=== PATIENT | female | born 1960 | race Caucasian/White ===

== ENCOUNTER → 2016-09-07 | Outpatient (REF) | payer OTHER ==
[~2016-09-07] MED LIST: *BLDWK10; *CXR; ALBU17IN INH; ALBUTEROL INH; AMBIENCR PO; AMOXIL875 PO; ASPI1TAB PO; ASPI81TA83 OR; ATEN100T; ATEN100T OR; ATEN100T PO; ATENOLO100 PO; AUG500 PO; CIPR500T89 PO; DARV100T; DARVOCET-N PO; EFFEXOR; EFFEXORXL1 PO; EFFEXORXL7 PO; FIORICET PO; FLAG500T PO; FOLI1TAB2 PO; HCTZ50 PO; HYDR-3713 PO; KEPP500T6 PO; KEPPRA; KLONOPIN05 PO; KLOR10TA OR; LANOXIN PO; LEXAPRO20 PO; LISI10TA4 OR; LYRI75CA; LYRICA75 PO; MOTRIN800 PO; NAPROS500 PO; NAPROSY500 PO; NITR0.4S SL; NITR4TASL SL; PLAV75TA2 OR; PLAV75TA38 PO; POTA20TA PO; PREDNISO10 PO; PROVERA10 PO; RANI15TA PO; REMERON15 PO; SIMV40TA2 OR; TOPAMAX100 PO; TOPAMAX200 PO; TOPI200T; TOPI200T OR; TOPI200T4 PO; TRAZ100T4 PO; TUSSIONEX PO; VENL75TA2 OR; VENL75TA2 PO; VICO5TAB OR; VIMP100T PO; VIMP200T PO; ZOCO40TA PO; ZOLOFT50 PO; ZOMIG2.5 PO
== END ==
LOC: M LAB REF 17:10
PROVIDERS: ATTEND Nurse Practitioner Family
DX: H60.311 Diffuse otitis externa, right ear (principal)

== ENCOUNTER → 2016-11-05 | Outpatient (CLI) | payer OTHER ==
[2016-11-05 13:29] LABS: MEAN CORPUSCULAR HEMOGLOBIN 30.4 pg (27.0-33.0); MEAN CORPUSCULAR HGB CONC 33.9 g/dl (32.0-36.5); MEAN CORPUSCULAR VOLUME 89.6 fl (80.0-96.0); RED CELL DISTRIBUTION WIDTH 13.1 % (11.5-14.5); WHITE BLOOD COUNT 6.2 K/mm3 (4.0-10.0)
[2016-11-05 13:33] LABS: ALBUMIN/GLOBULIN RATIO 1.25 (1.00-1.93); ALKALINE PHOSPHATASE 120 U/L (45-117); ALT/SGPT 22 U/L (12-78); ANION GAP 10 MEQ/L (8-16); AST/SGOT 15 U/L (15-37); BILIRUBIN,TOTAL 0.3 MG/DL (0.2-1.0); BLOOD UREA NITROGEN 9 MG/DL (7-18); CALCIUM LEVEL 9.2 MG/DL (8.5-10.1); CARBON DIOXIDE LEVEL 25 MEQ/L (21-32); CHLORIDE LEVEL 110 MEQ/L (98-107); CREATININE FOR GFR 0.74 MG/DL (0.55-1.02); GLOMERULAR FILTRATION RATE > 60.0 (>51); GLUCOSE, FASTING 101 MG/DL (70-105); SODIUM LEVEL 145 MEQ/L (136-145); TOTAL PROTEIN 7.2 GM/DL (6.4-8.2)
== END ==
LOC: M LAB 12:39
PROVIDERS: ATTEND Internal Medicine Hematology & Oncology
DX: C71.1 Malignant neoplasm of frontal lobe (principal)

== ENCOUNTER → 2017-03-06 | Outpatient (CLI) | payer OTHER, MEDICAID ==
[~2017-03-06] MED LIST changes: +CIPR-249 PO; -CIPR500T89 PO; -FOLI1TAB2 PO; +FOLI1TAB4 PO; +KEPP1TAB PO; -KEPP500T6 PO; +PLAV1TAB2 PO; -PLAV75TA38 PO; -TOPI200T4 PO; +TOPI200T7 PO; +TRAZ-136 PO; -TRAZ100T4 PO
[2017-03-06 15:12] LABS: MEAN CORPUSCULAR HEMOGLOBIN 30.9 pg (27.0-33.0); MEAN CORPUSCULAR VOLUME 90.9 fl (80.0-96.0); RED CELL DISTRIBUTION WIDTH 12.7 % (11.5-14.5); WHITE BLOOD COUNT 6.2 K/mm3 (4.0-10.0)
[2017-03-06 15:22] LABS: ALBUMIN 4.3 GM/DL (3.2-5.2); ALBUMIN/GLOBULIN RATIO 1.34 (1.00-1.93); ALKALINE PHOSPHATASE 118 U/L (45-117); ALT/SGPT 26 U/L (12-78); ANION GAP 7 MEQ/L (8-16); AST/SGOT 17 U/L (15-37); BILIRUBIN,TOTAL 0.3 MG/DL (0.2-1.0); BLOOD UREA NITROGEN 16 MG/DL (7-18); CALCIUM LEVEL 9.2 MG/DL (8.5-10.1); CARBON DIOXIDE LEVEL 22 MEQ/L (21-32); CHLORIDE LEVEL 112 MEQ/L (98-107); CREATININE FOR GFR 0.95 MG/DL (0.55-1.02); GLOMERULAR FILTRATION RATE > 60.0 (>51); GLUCOSE, FASTING 85 MG/DL (70-105); POTASSIUM SERUM 4.2 MEQ/L (3.5-5.1); SODIUM LEVEL 141 MEQ/L (136-145); TOTAL PROTEIN 7.5 GM/DL (6.4-8.2)
== END ==
LOC: M LAB 14:14
PROVIDERS: ATTEND Internal Medicine Hematology & Oncology
DX: C71.1 Malignant neoplasm of frontal lobe (principal); I10 Essential (primary) hypertension; M19.90 Unspecified osteoarthritis, unspecified site; I25.2 Old myocardial infarction

== ENCOUNTER → 2017-05-09 | Outpatient (CLI) | payer OTHER, MEDICAID ==
--- NOTE | 2017-05-09 13:12 | REP ---
Clinical: Hip pain. Technique: Neutral and frog lateral views of the right hip. Findings: Age-related changes include increased sclerosis to the acetabular roof with subtle early spurring. No acute fracture dislocation. Surrounding soft tissues are normal. Impression: Mild age-related degenerative changes. Signed by Jose Ross MD 05/09/2017 01:03 P
== END ==
LOC: M RAD 12:41
PROVIDERS: ATTEND Psychiatry & Neurology Neurology
DX: M25.551 Pain in right hip (principal); M16.11 Unilateral primary osteoarthritis, right hip

== ENCOUNTER → 2017-06-12 | Outpatient (CLI) | payer OTHER, MEDICAID ==
[2017-06-12 13:43] LABS: BLOOD UREA NITROGEN 17 MG/DL (7-18); CREATININE FOR GFR 0.87 MG/DL (0.55-1.02); GLOMERULAR FILTRATION RATE > 60.0 (>51)
== END ==
LOC: M LAB 12:41
PROVIDERS: ATTEND Psychiatry & Neurology Neurology
DX: I10 Essential (primary) hypertension (principal)

== ENCOUNTER → 2017-10-14 | Outpatient (CLI) | payer OTHER, MEDICAID | LOC: M RAD 14:17 | DX: J44.9 Chronic obstructive pulmonary disease, unspecified (principal) | CPT/HCPCS: 71046 ==

== ENCOUNTER → 2017-10-17 | Outpatient (CLI) | payer OTHER, MEDICAID | LOC: M RAD 14:41 | DX: Z12.31 Encounter for screening mammogram for malignant neoplasm of breast (principal); Z78.0 Asymptomatic menopausal state | CPT/HCPCS: 77067 ==

== ENCOUNTER → 2018-02-03 | Outpatient (CLI) | payer OTHER, MEDICAID ==
[2018-02-03 13:35] LABS: BASO % 0.4 % (0.0-1.0); EOS # 0.1 10^3/uL (0.0-0.50); EOS % 0.9 % (0.0-3.0); HEMATOCRIT 44.1 % (36.0-47.0); HEMOGLOBIN 14.8 g/dl (12.0-15.5); IMMATURE GRANULOCYTE % 0.4 % (0-3.0); MEAN CORPUSCULAR HEMOGLOBIN 29.8 pg (27.0-33.0); MEAN CORPUSCULAR HGB CONC 33.6 g/dl (32.0-36.5); MEAN CORPUSCULAR VOLUME 88.9 fl (80.0-96.0); MONO # 0.6 10^3/uL (0.0-0.8); MONO % 8.1 % (0.0-5.0); NEUTROPHILS # 4.4 10^3/uL (1.8-7.7); NEUTROPHILS % 62.2 % (36.0-66.0); PLATELET COUNT, AUTOMATED 263 10^3/uL (150-450); RED BLOOD COUNT 4.96 10^6/uL (4.00-5.40); RED CELL DISTRIBUTION WIDTH 12.8 % (11.5-14.5)
[2018-02-03 13:59] LABS: ALBUMIN 3.9 GM/DL (3.2-5.2); ALBUMIN/GLOBULIN RATIO 1.05 (1.00-1.93); ALKALINE PHOSPHATASE 119 U/L (45-117); ALT/SGPT 29 U/L (12-78); ANION GAP 5 MEQ/L (8-16); AST/SGOT 21 U/L (7-37); BILIRUBIN,TOTAL 0.3 MG/DL (0.2-1.0); BLOOD UREA NITROGEN 14 MG/DL (7-18); CALCIUM LEVEL 9.7 MG/DL (8.5-10.1); CARBON DIOXIDE LEVEL 28 MEQ/L (21-32); CHLORIDE LEVEL 111 MEQ/L (98-107); CREATININE FOR GFR 0.76 MG/DL (0.55-1.30); GLOMERULAR FILTRATION RATE > 60.0 (>51); GLUCOSE, FASTING 84 MG/DL (70-100); POTASSIUM SERUM 4.6 MEQ/L (3.5-5.1); SODIUM LEVEL 144 MEQ/L (136-145); TOTAL PROTEIN 7.6 GM/DL (6.4-8.2)
== END ==
LOC: M LAB 12:43
DX: C71.1 Malignant neoplasm of frontal lobe (principal)
CPT/HCPCS: 80053

== ENCOUNTER 2018-02-27 05:54 | Day surgery (SDC) | payer OTHER, MEDICAID ==
[2018-02-27] MEDS: PROPARACAINE 0.5% OPHTH SOL 15ML OS (06:50)
[2018-02-27] MEDS: TROPICAMIDE 1% OPHTH SOLN 2ML OS (06:50)
[2018-02-27] MEDS: OFLOXACIN 0.3 % (OCUFLOX) OPTH SOL 5ML OS (06:50)
[2018-02-27] MEDS: PHENYLEPHRINE 2.5% OPHTH SOL 2ML OS (06:59)
[2018-02-27] MEDS ORDERED: MIDAZOLAM INJ 2 MG/2 ML VIAL (J2250) As Ordered (07:17)
[2018-02-27] MEDS: POVIDONE-IODINE 5% OPHTH PREP SOL 30ML As Ordered (07:56)
[2018-02-27] MEDS ORDERED: fentaNYL 100 MCG/2 ML INJECTION (J3010) As Ordered (07:57)
[2018-02-27] MEDS: TETRACAINE 0.5% OPHTH SOLN 4ML As Ordered (07:57)
[2018-02-27] MEDS: DUOVISC (0.50ML VISCOAT/0.55ML PROVISC) OPHTH KIT As Ordered (08:03)
[2018-02-27] MEDS: BALANCED SALT IRRIGATION SOLUTION 500ML BAG (FOR OR EYE MACHINE) As Ordered (08:03)
[2018-02-27] MEDS: CEFUROXIME 1MG/0.1ML INTRACAMERAL INJ As Ordered (08:03)
[2018-02-27] MEDS: LIDOCAINE 0.75%/EPINEPHRINE 0.025% IN BSS 1ML SYR INTRACAMERAL (OR ONLY) As Ordered (08:03)
[2018-02-27] MEDS ORDERED: BALANCED SALT IRRIGATION SOLUTION 500ML BAG (FOR OR EYE MACHINE) As Ordered (10:16)
== END 2018-02-27 08:55 | disposition home or self-care (01) ==
LOC: M SDC 05:54
DX: H25.12 Age-related nuclear cataract, left eye (principal); I10 Essential (primary) hypertension; J45.909 Unspecified asthma, uncomplicated; E78.5 Hyperlipidemia, unspecified; I25.10 Atherosclerotic heart disease of native coronary artery without angina pectoris; I25.2 Old myocardial infarction; K52.9 Noninfective gastroenteritis and colitis, unspecified; K21.9 Gastro-esophageal reflux disease without esophagitis; R29.898 Other symptoms and signs involving the musculoskeletal system; M12.9 Arthropathy, unspecified; F32.9 Major depressive disorder, single episode, unspecified; R51 Headache; R56.9 Unspecified convulsions; R06.02 Shortness of breath; Z88.8 Allergy status to other drugs, medicaments and biological substances; Z79.899 Other long term (current) drug therapy; Z79.82 Long term (current) use of aspirin; Z72.0 Tobacco use; Z95.5 Presence of coronary angioplasty implant and graft; Z92.21 Personal history of antineoplastic chemotherapy; Z92.3 Personal history of irradiation; Z78.0 Asymptomatic menopausal state; Z86.011 Personal history of benign neoplasm of the brain
CPT/HCPCS: 66984

== ENCOUNTER 2019-01-13 22:04 | Emergency (ER) | payer MEDICARE, MEDICAID ==
[~2019-01-13] VITALS: Ht 157.5 cm; Wt 53.7 kg
[~2019-01-13 22:04] MED LIST changes: -ASPI1TAB PO; +ASPI81TA26 PO; +FOLI1TAB11 PO; -FOLI1TAB4 PO; +KLOR20TA42 PO; -POTA20TA PO; -TRAZ-136 PO; +TRAZ-163 PO
[2019-01-13] MEDS ORDERED: TOPI200T7 (22:38)
--- NOTE | 2019-01-14 01:35 | REPVR ---
EXAM: CT Head Without Contrast EXAM DATE/TIME: 01/13/2019 10:42 PM CLINICAL HISTORY: 58 years old, female; Injury or trauma; Fall; Prior surgery; Surgery date: 6+ months; Surgery type: Crani for tumors patient states TECHNIQUE: Imaging protocol: Axial computed tomography images of the head without contrast. Radiation optimization: All CT scans at this facility use at least one of these dose optimization techniques: automated exposure control; mA and/or kV adjustment per patient size (includes targeted exams where dose is matched to clinical indication); or iterative reconstruction. COMPARISON: CT Head without contrast 12/10/2015 2:07 PM FINDINGS: The patient is status post a left frontotemporal craniotomy, approximately 7.2 cm in diameter, similar to the prior exam, with bone flap appearing in good position, secured by metallic plate and screw fixation. There is no acute intracranial hemorrhage, extra axial hematoma, or midline shift. There is parenchymal volume loss, likely related to age related involutional change. The ventricles are not dilated. There is mild intracranial atherosclerosis. Deep to the craniotomy site, there is cortical and subcortical hypoattenuation within the left frontal lobe, similar to the prior exam, possibly encephalomalacia, related to postsurgical change and/or related to chronic vascular ischemic change. Encephalomalacia also noted within the posterior right occipital lobe, similar to the prior exam possibly related to old infarct. Microvascular ischemic changes are also suspected bilaterally. No CT findings are seen at the current time to suggest changes of acute territorial vascular infarction. Note is made however, that CT changes, may lag clinical findings in acute CVA. If clinically indicated, consideration could be given to MRI with diffusion weighted imaging, due to its greater sensitivity, for detection of acute ischemic change. Intracranial calcifications are incidentally noted. No pericranial scalp hematoma is seen. Ocular postoperative changes are noted. No acute cranial vault fracture is seen. No fluid is seen within the visualized paranasal sinuses or mastoid air cells. IMPRESSION: No evidence of acute territorial major vessel infarct, mass effect, or hemorrhage. Postoperative changes are again noted. Intracranial atherosclerosis and microvascular ischemic changes again noted. Left frontal and right occipital lobe encephalomalacia are similar to the prior exam. For evaluation of mass, consider imaging with contrast, preferably MRI. Findings discussed above in detail. Electronically signed by: Ronaldo Scott On 01/14/2019 01:34:26 AM
--- NOTE | 2019-01-14 01:38 | REPVR ---
EXAM: CT Cervical Spine Without Contrast EXAM DATE/TIME: 01/13/2019 10:42 PM CLINICAL HISTORY: 58 years old, female; Injury or trauma; Fall; Initial encounter; Concussion /head injury TECHNIQUE: Imaging protocol: Axial computed tomography images of the cervical spine without contrast. Coronal and sagittal reformatted images were created and reviewed. Radiation optimization: All CT scans at this facility use at least one of these dose optimization techniques: automated exposure control; mA and/or kV adjustment per patient size (includes targeted exams where dose is matched to clinical indication); or iterative reconstruction. COMPARISON: No relevant prior studies available. FINDINGS: Cervical vertebral body heights, posterior cervical alignment, and prevertebral soft tissues are within normal limits. The facet joints are not subluxed or dislocated. No acute fracture of the cervical spine is seen. Mild degenerative changes are noted. IMPRESSION: No acute fracture or malalignment of the cervical spine. Other findings discussed above. Electronically signed by: Ronaldo Scott On 01/14/2019 01:38:21 AM
[2019-01-14 05:43] VITALS: BP 134/76
--- NOTE | 2019-01-14 06:18 | ECGEPIP ---
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
--- NOTE | 2019-01-15 14:03 | ED PDOC ---
Post-Departure Follow-Up dr piedra faxed formal report of ct head for fu Sammi Madison MD January 15, 2019 14:03
== END 2019-01-14 05:44 | disposition home or self-care (01) ==
LOC: M ED 22:04
DX: R26.89 Other abnormalities of gait and mobility (principal); W19.XXXA Unspecified fall, initial encounter; Y92.099 Unspecified place in other non-institutional residence as the place of occurrence of the external cause; Y93.01 Activity, walking, marching and hiking; Y99.9 Unspecified external cause status; R00.1 Bradycardia, unspecified; I25.10 Atherosclerotic heart disease of native coronary artery without angina pectoris; I25.2 Old myocardial infarction; I10 Essential (primary) hypertension; Z79.82 Long term (current) use of aspirin; Z79.899 Other long term (current) drug therapy; Z88.8 Allergy status to other drugs, medicaments and biological substances

== ENCOUNTER → 2019-04-09 | Outpatient (CLI) | payer MEDICARE, MEDICAID ==
[~2019-04-09] MED LIST changes: +TOPI200T7
[2019-04-09 14:13] LABS: BLOOD UREA NITROGEN 9 MG/DL (7-18); CREATININE FOR GFR 0.73 MG/DL (0.55-1.30); GLOMERULAR FILTRATION RATE > 60.0 (>51)
== END ==
LOC: M LAB 12:57
PROVIDERS: ATTEND Internal Medicine Hematology & Oncology
DX: C71.1 Malignant neoplasm of frontal lobe (principal)

== ENCOUNTER 2019-04-25 15:08 | Emergency (ER) | payer MEDICARE, MEDICAID ==
[~2019-04-25] VITALS: Ht 157.5 cm; Wt 64.2 kg
--- NOTE | 2019-04-25 15:37 | REP ---
Clinical: Trauma. Technique: Axial noncontrast images from the skull base to the vertex. Comparison: 01/13/2019. Findings: Evidence of prior left-sided craniotomy with underlying encephalomalacia and low density changes. Mild atrophy and periventricular leukomalacia is also appreciated along with focus of encephalomalacia in the right occipital region. There is no evidence for acute intracranial hemorrhage or mass/mass effect. No midline shift. No extra-axial fluid collection. Sinuses and mastoid air cells are clear. Impression: Chronic stable changes. No evidence for acute intracranial hemorrhage or trauma/injury. Electronically Signed by Jose Ross MD 04/25/2019 03:27 P
--- NOTE | 2019-04-25 15:38 | REP ---
Clinical: Trauma. Comparison: 01/13/2019 . Technique: Axial noncontrast images from the skull base to the thoracic inlet with coronal and sagittal re-formations Findings: Normal alignment and lordosis is maintained. Cervical vertebral bodies including transverse processes and spinous processes are intact and there is no evidence for acute fracture / compression injury or subluxation. Spinal canal is patent. Posterior elements are intact. Paravertebral soft tissues are normal. Impression: Normal age-appropriate noncontrast cervical spine CT. No evidence for acute pathology or trauma/injury. Electronically Signed by Jose Ross MD 04/25/2019 03:28 P
--- NOTE | 2019-04-25 16:15 | REP ---
Clinical: Trauma. Fall. Technique: AP view of the pelvis with neutral and frog lateral views of the right and left hip. Findings: Skeletal structures and joint spaces are intact and demonstrate age-related changes without evidence for acute fracture or dislocation. Surrounding soft tissues are unremarkable. Impression: No evidence for pelvic or bilateral hip fracture/injury. The Electronically Signed by Jose Ross MD 04/25/2019 04:07 P
[2019-04-25 16:35] VITALS: BP 167/81
== END 2019-04-25 16:43 | disposition home or self-care (01) ==
LOC: M ED 15:08
DX: S00.03XA Contusion of scalp, initial encounter (principal); S70.00XA Contusion of unspecified hip, initial encounter; W18.39XA Other fall on same level, initial encounter; Y92.018 Other place in single-family (private) house as the place of occurrence of the external cause; I10 Essential (primary) hypertension; R56.9 Unspecified convulsions; Z79.899 Other long term (current) drug therapy; Z79.82 Long term (current) use of aspirin; Z88.8 Allergy status to other drugs, medicaments and biological substances

== ENCOUNTER 2019-05-04 11:41 | Emergency (ER) | payer MEDICARE, MEDICAID ==
[~2019-05-04] VITALS: Ht 157.5 cm; Wt 58.1 kg
[~2019-05-04 11:41] MED LIST changes: -TRAZ-163 PO; +TRAZ-257 PO
--- NOTE | 2019-05-04 12:35 | REP ---
CT of the head without contrast Indication: Recurrent false, history glioma with resection. Comparison: Head CT of 04/25/2019. Technique: Axial CT of the head was performed without contrast. Findings: There is evidence of prior left-sided craniotomy with underlying sign of density within the left frontal white matter and volume loss. There is a similar appearance of right occipital encephalomalacia as well as hypodensity within the right cerebral hemisphere which is nonspecific. There is no evidence of acute intracranial hemorrhage or extra-axial fluid collection. There is no mass effect or midline shift. The basal cisterns are patent. There is no hydrocephalus. The visualized paranasal sinuses and mastoid air cells are clear. Impression: No acute intracranial hemorrhage, mass effect or hydrocephalous. Similar appearance of prior left craniotomy with underlying left frontal white matter changes and encephalomalacia. Similar right occipital encephalomalacia. Electronically Signed by Junaid Knapp MD 05/04/2019 12:27 P
[2019-05-04 12:46] LABS: HEMATOCRIT 43.5 % (36.0-47.0); HEMOGLOBIN 14.6 g/dl (12.0-15.5); MEAN CORPUSCULAR HEMOGLOBIN 29.3 pg (27.0-33.0); MEAN CORPUSCULAR HGB CONC 33.6 g/dl (32.0-36.5); MEAN CORPUSCULAR VOLUME 87.2 fl (80.0-96.0); PLATELET COUNT, AUTOMATED 217 10^3/uL (150-450); RED BLOOD COUNT 4.99 10^6/uL (4.00-5.40); WHITE BLOOD COUNT 5.9 10^3/uL (4.0-10.0)
[2019-05-04 13:04] LABS: BLOOD UREA NITROGEN 7 MG/DL (7-18); CARBON DIOXIDE LEVEL 23 MEQ/L (21-32); CHLORIDE LEVEL 112 MEQ/L (98-107); CREATININE FOR GFR 0.68 MG/DL (0.55-1.30); GLOMERULAR FILTRATION RATE > 60.0 (>51); GLUCOSE, FASTING 102 MG/DL (70-100); POTASSIUM SERUM 3.2 MEQ/L (3.5-5.1); SODIUM LEVEL 141 MEQ/L (136-145)
[2019-05-04] MEDS ORDERED: POTASSIUM CHLORIDE 10 MEQ SR TABLET PO ONE (13:30)
[2019-05-04 14:00] VITALS: BP 193/90
[2019-09-07] MEDS ORDERED: OXYC-517 PO (23:00)
[2019-09-07] MEDS ORDERED: KLOR10TA76 PO (23:00)
[2019-09-07] MEDS ORDERED: DEXA2TA PO (23:00)
== END 2019-05-04 14:13 | disposition home or self-care (01) ==
LOC: EDBD 11:41 → M ED 11:41
DX: Z85.841 Personal history of malignant neoplasm of brain (principal); R26.9 Unspecified abnormalities of gait and mobility; I25.10 Atherosclerotic heart disease of native coronary artery without angina pectoris; I25.2 Old myocardial infarction; Z95.5 Presence of coronary angioplasty implant and graft; Z88.8 Allergy status to other drugs, medicaments and biological substances; Z79.82 Long term (current) use of aspirin; Z79.899 Other long term (current) drug therapy

== ENCOUNTER 2019-06-11 14:45 | Emergency (ER) | payer MEDICARE, MEDICAID ==
[~2019-06-11 14:45] MED LIST changes: +TRAZ-163 PO; -TRAZ-257 PO
--- NOTE | 2019-06-11 15:40 | REP ---
CT brain: 06/11/2019. Indication: Head trauma. Comparison: 05/04/2019. Technique: Unenhanced axial CT images of the brain were obtained from skull base to vertex. Findings: The patient is status post left frontoparietal craniotomy with underlying encephalomalacia and gliosis within the left frontal lobe. Encephalomalacia is additionally noted within the medial right prior occipital region. There is no acute intracranial hemorrhage or evidence of acute cortical infarction. There is no mass effect or hydrocephalous. There is ex vacuo dilatation of the left lateral ventricle. Volume loss is present. There are scattered/patchy areas of white matter hypoattenuation the visualized paranasal sinuses and mastoid air cells are clear. Impression: No acute post traumatic intracranial process. Left frontal lobe encephalomalacia. Left frontoparietal craniotomy. Right prior occipital encephalomalacia most consistent with the previous right SENIOR GAME DESIGNER infarction. Volume loss and chronic white matter disease likely representing sequelae of chronic microangiopathic ischemic disease. Electronically Signed by Jason Murray DO 06/11/2019 03:31 P
--- NOTE | 2019-06-11 15:46 | REP ---
CT cervical spine: 06/11/2019. Indication: Cervical spine trauma. Comparison: 04/25/2019. Technique: Axial images of the cervical spine were obtained with sagittal and coronal reconstructions provided. Findings: There is slight straightening of the cervical lordosis. There is no acute fracture, subluxation or dislocation. The prevertebral soft tissues are unremarkable. There is a punctate hyperdense focus within the left occipital condyle which is most consistent with a tiny bone island. There is no hemorrhage or additional post traumatic sequelae detected within the spinal canal. Impression: No acute post traumatic osseous injuries of the cervical spine. Electronically Signed by Jason Murray DO 06/11/2019 03:37 P
[2019-06-11 16:16] LABS: BASO % 0.5 % (0.0-1.0); EOS % 0.6 % (0.0-3.0); HEMATOCRIT 45.2 % (36.0-47.0); HEMOGLOBIN 15.1 g/dl (12.0-15.5); LYMPH # 1.9 10^3/uL (1.5-5.0); LYMPH % 30.3 % (24.0-44.0); MEAN CORPUSCULAR HEMOGLOBIN 29.7 pg (27.0-33.0); MEAN CORPUSCULAR HGB CONC 33.4 g/dl (32.0-36.5); MEAN CORPUSCULAR VOLUME 88.8 fl (80.0-96.0); MONO # 0.6 10^3/uL (0.0-0.8); MONO % 8.8 % (0.0-5.0); NEUTROPHILS # 3.8 10^3/uL (1.5-8.5); NEUTROPHILS % 59.5 % (36.0-66.0); PLATELET COUNT, AUTOMATED 251 10^3/uL (150-450); RED BLOOD COUNT 5.09 10^6/uL (4.00-5.40); WHITE BLOOD COUNT 6.4 10^3/uL (4.0-10.0)
[2019-06-11 16:40] LABS: INR 1.17; PROTHROMBIN TIME 14.6 SECONDS (11.8-14.0)
[2019-06-11 17:00] LABS: BLOOD UREA NITROGEN 7 MG/DL (7-18); CARBON DIOXIDE LEVEL 14 MEQ/L (21-32); CHLORIDE LEVEL 133 MEQ/L (98-107); CREATININE FOR GFR 0.25 MG/DL (0.55-1.30); GLOMERULAR FILTRATION RATE > 60.0 (>51); GLUCOSE, FASTING 55 MG/DL (70-100); POTASSIUM SERUM 2.1 MEQ/L (3.5-5.1); SODIUM LEVEL 152 MEQ/L (136-145)
[2019-06-11 17:01] LABS: CALCIUM LEVEL < 5.0 MG/DL (8.5-10.1)
[2019-06-11] MEDS ORDERED: NS 1,000 ML IV SCH (17:19)
[2019-06-11] MEDS ORDERED: KCL 10MEQ/100ML SWI (KRUN) 10 MEQ in IV 1 EA IV ONE (17:30)
[2019-06-11] MEDS ORDERED: POTASSIUM CHLORIDE 10 MEQ SR TABLET PO ONE (17:30)
[2019-06-11 17:50] LABS: ACETAMINOPHEN LEVEL 9.9 UG/ML (10.0-30.0); ALBUMIN 1.8 GM/DL (3.2-5.2); ALT/SGPT 9 U/L (12-78); BILIRUBIN,DIRECT < 0.1 MG/DL (0.0-0.2); BILIRUBIN,TOTAL 0.3 MG/DL (0.2-1.0); CK-MB VALUE MASS < 1.0 NG/ML (<3.6); CPK CREATINE PHOSPHOKINASE 34 U/L (26-192); MB/CK RELATIVE INDEX 2.94 (< OR =4); SALICYLATE LEVEL < 1.7 MG/DL (5.0-30.0); THYROID STIMULATING HORMONE 0.527 uIU/ML (0.358-3.740); TOTAL PROTEIN 3.3 GM/DL (6.4-8.2); TROPONIN I 0.03 NG/ML (< 0.10)
[2019-06-11 18:29] LABS: BLOOD UREA NITROGEN 11 MG/DL (7-18); CALCIUM LEVEL 9.3 MG/DL (8.5-10.1); CARBON DIOXIDE LEVEL 24 MEQ/L (21-32); CHLORIDE LEVEL 114 MEQ/L (98-107); CREATININE FOR GFR 0.76 MG/DL (0.55-1.30); GLOMERULAR FILTRATION RATE > 60.0 (>51); GLUCOSE, FASTING 85 MG/DL (70-100); POTASSIUM SERUM 3.9 MEQ/L (3.5-5.1); SODIUM LEVEL 142 MEQ/L (136-145)
[2019-06-11 18:40] LABS: ACETAMINOPHEN LEVEL < 2.0 UG/ML (10.0-30.0); ALBUMIN 3.6 GM/DL (3.2-5.2); ALT/SGPT 17 U/L (12-78); BILIRUBIN,DIRECT 0.1 MG/DL (0.0-0.2); BILIRUBIN,TOTAL 0.5 MG/DL (0.2-1.0); CK-MB VALUE MASS < 1.0 NG/ML (<3.6); CPK CREATINE PHOSPHOKINASE 64 U/L (26-192); MB/CK RELATIVE INDEX 1.56 (< OR =4); SALICYLATE LEVEL 2.7 MG/DL (5.0-30.0); TOTAL PROTEIN 6.6 GM/DL (6.4-8.2); TROPONIN I < 0.02 NG/ML (< 0.10)
[2019-06-11 19:19] VITALS: BP 116/73
--- NOTE | 2019-06-12 19:39 | ECGEPIP ---
[facility] - ED Test Date: 2019-06-11 Pat Name: STACIE CRUZ Department: Room: - Gender: Female Ui Architect: YULIANA : 1960 Requested By: JD CR Order Number: [id number] Reading MD: Sammi Lantigua Measurements Intervals [place] Rate: 59 P: 63 GA: 182 QRS: 34 QRSD: 98 T: 47 QT: 418 QTc: 416 Interpretive Statements SINUS BRADYCARDIA NONSPECIFIC ST T WAVE CHANGES DELAYED R WAVE PROGRESSION CW 01/13/[address] T WAVE CHANGES Electronically Signed on 06-12-2019 19:39:23 EDT by Sammi Lantigua
== END 2019-06-11 19:25 | disposition home or self-care (01) ==
LOC: M ED 14:45
DX: S09.90XA Unspecified injury of head, initial encounter (principal); W18.39XA Other fall on same level, initial encounter; Y92.410 Unspecified street and highway as the place of occurrence of the external cause; I25.10 Atherosclerotic heart disease of native coronary artery without angina pectoris; Z95.5 Presence of coronary angioplasty implant and graft; Z79.899 Other long term (current) drug therapy; Z79.82 Long term (current) use of aspirin; Z79.02 Long term (current) use of antithrombotics/antiplatelets; Z88.8 Allergy status to other drugs, medicaments and biological substances; F17.210 Nicotine dependence, cigarettes, uncomplicated

== ENCOUNTER → 2019-10-19 | Outpatient (CLI) | payer MEDICARE, MEDICAID ==
[~2019-10-19] MED LIST changes: +DEXA2TA PO; +KLOR10TA76 PO; +OXYC-517 PO; -TRAZ-163 PO; +TRAZ-257 PO
[2019-10-19 14:20] LABS: ALBUMIN 3.7 GM/DL (3.2-5.2); ALT/SGPT 14 U/L (12-78); BILIRUBIN,TOTAL 0.3 MG/DL (0.2-1.0); BLOOD UREA NITROGEN 10 MG/DL (7-18); CALCIUM LEVEL 8.9 MG/DL (8.5-10.1); CARBON DIOXIDE LEVEL 22 MEQ/L (21-32); CHLORIDE LEVEL 114 MEQ/L (98-107); CREATININE FOR GFR 0.78 MG/DL (0.55-1.30); GLOMERULAR FILTRATION RATE > 60.0 (>51); GLUCOSE, FASTING 106 MG/DL (70-100); POTASSIUM SERUM 3.8 MEQ/L (3.5-5.1); SODIUM LEVEL 142 MEQ/L (136-145)
== END ==
LOC: M LAB 13:31
PROVIDERS: ATTEND Internal Medicine Hematology & Oncology
DX: C71.1 Malignant neoplasm of frontal lobe (principal)

== ENCOUNTER → 2019-11-12 | Outpatient (CLI) | payer MEDICARE, MEDICAID ==
[~2019-11-12] MED LIST changes: +PROHANCE 279.3MG/ML 5ML VIAL (A9576) As Ordered ONE
--- NOTE | 2019-11-12 13:40 | REPVR ---
PROCEDURE INFORMATION: Exam: MR Head Without and With Contrast Exam date and time: 11/12/2019 11:47 AM Age: 58 years old Clinical indication: Condition or disease; Brain tumor; Neoplasm of brain, not specified; Prior surgery; Surgery date: 6+ months; Surgery type: HX tumor; Additional info: Malignant neoplasm of frontal lobe TECHNIQUE: Imaging protocol: MR of the head without and with intravenous contrast. Contrast material: PROHANCE; Contrast volume: 9 ml; Contrast route: IV; COMPARISON: 1. MRI-Brain W/O FOLL BY WITH 12/10/2015 4:[address] Head without contrast 09/08/2019 12:11:57 AM FINDINGS: Brain: Stable postsurgical changes and encephalomalacia in the left frontal and right occipital lobes. No abnormal contrast enhancement is seen to suggest residual or recurrent mass.Moderate increased T2 signal in bilateral cerebral white matter reflect a combination of chronic ischemic changes and treatment related changes. No acute infarction, acute hemorrhage or midline shift is seen. There is no abnormal diffusion weighted signal intensity to suggest an acute ischemic event. There is mild diffuse cerebral atrophy present, consistent with this patient's age. Examination of the posterior fossa demonstrates no significant abnormality. Ventricles: The ventricular system demonstrates mild diffuse compensatory enlargement. Bones/joints: Stable craniotomy changes are noted in the left frontal bone. Soft tissues: Unremarkable. Sinuses: Normal as visualized. No acute sinusitis. Mastoid air cells: Normal as visualized. No mastoid effusion. Orbits: Unremarkable. IMPRESSION: 1. Stable postsurgical changes and encephalomalacia in the left frontal and right occipital lobes. No abnormal contrast enhancement is seen to suggest residual or recurrent mass.Moderate increased T2 signal in bilateral cerebral white matter reflect a combination of chronic ischemic changes and treatment related changes. 2. No acute infarction, acute hemorrhage or midline shift is seen. 3. Stable craniotomy changes are noted in the left frontal bone. Electronically signed by: Junaid Marmolejo On 11/12/2019 13:39:43 PM
== END ==
LOC: M RAD 10:52
PROVIDERS: ATTEND Internal Medicine Hematology & Oncology
DX: G93.89 Other specified disorders of brain (principal); I67.82 Cerebral ischemia
CPT/HCPCS: 70553; A9576

== ENCOUNTER 2019-11-22 21:52 | Emergency (ER) | payer MEDICARE, MEDICAID ==
[~2019-11-22] VITALS: Ht 157.5 cm; Wt 45.7 kg
[~2019-11-22 21:52] MED LIST changes: -PROHANCE 279.3MG/ML 5ML VIAL (A9576) As Ordered ONE
--- NOTE | 2019-11-22 22:36 | REPVR ---
PROCEDURE INFORMATION: Exam: CT Head Without Contrast Exam date and time: 11/22/2019 10:12 PM Age: 58 years old Clinical indication: Injury or trauma; Fall; Initial encounter; Blunt trauma (contusions or hematomas); Additional info: Head injury TECHNIQUE: Imaging protocol: Computed tomography of the head without contrast. Radiation optimization: All CT scans at this facility use at least one of these dose optimization techniques: automated exposure control; mA and/or kV adjustment per patient size (includes targeted exams where dose is matched to clinical indication); or iterative reconstruction. COMPARISON: CT Head without contrast 2019-09-08 00:11 FINDINGS: Brain: Chronic right parietal occipital cortical infarct. Lateral left frontal lobe encephalomalacia. Moderate chronic white matter disease. No midline shift, mass, fluid collection, or evidence of acute hemorrhage. Ventricles: Normal. No ventriculomegaly. Bones/joints: Left frontal parietal craniotomy. Sinuses: Visualized sinuses are unremarkable. No fluid levels. Mastoid air cells: Visualized mastoid air cells are well aerated. Soft tissues: Unremarkable. IMPRESSION: No acute intracranial abnormality. Electronically signed by: Zane Rocha On 11/22/2019 22:35:36 PM
--- NOTE | 2019-11-22 22:36 | REPVR ---
PROCEDURE INFORMATION: Exam: CT Cervical Spine Without Contrast Exam date and time: 11/22/2019 10:12 PM Age: 58 years old Clinical indication: Injury or trauma; Fall; Initial encounter; Blunt trauma; Additional info: Head injury TECHNIQUE: Imaging protocol: Computed tomography images of the cervical spine without contrast. Radiation optimization: All CT scans at this facility use at least one of these dose optimization techniques: automated exposure control; mA and/or kV adjustment per patient size (includes targeted exams where dose is matched to clinical indication); or iterative reconstruction. COMPARISON: CT Spine,cervical w/o contrast 2019-06-11 15:13 FINDINGS: Vertebrae: Normal spinal curvature, vertebral body heights, and alignment. No spinal fracture or acute subluxation. Discs/Spinal canal/Neural foramina: Diffuse degenerative disc space loss with degenerative disc osteophyte complexes causes up to mild spinal and foraminal stenosis greatest at C4-C7. Soft tissues: Unremarkable. Lungs: Lung apices are normal. IMPRESSION: No acute vertebral fracture/subluxation. Electronically signed by: Zane Rocha On 11/22/2019 22:36:23 PM
--- NOTE | 2019-11-22 22:39 | REPVR ---
PROCEDURE INFORMATION: Exam: CT Chest Without Contrast Exam date and time: 11/22/2019 10:12 PM Age: 58 years old Clinical indication: Injury or trauma; Fall; Initial encounter; Blunt trauma (contusions or hematomas); Additional info: Fall/low risk TECHNIQUE: Imaging protocol: Computed tomography of the chest without contrast. 3D rendering: MIP and/or 3D reconstructed images were created by the technologist. Radiation optimization: All CT scans at this facility use at least one of these dose optimization techniques: automated exposure control; mA and/or kV adjustment per patient size (includes targeted exams where dose is matched to clinical indication); or iterative reconstruction. COMPARISON: 1. CT ABD PELVIS WITH CONTRAST 04/14/2014 9:51:58 PM 2. CR Chest, 2 view PA, Lat 2017-10-14 14:25 FINDINGS: Lungs: There is a pulmonary parenchymal calcification consistent with remote granulomatous organism exposure. Pleural space: Unremarkable. No pneumothorax. No pleural effusion. Heart: Moderate coronary artery atherosclerotic calcifications. Aorta: Unremarkable. No aortic aneurysm. Lymph nodes: Unremarkable. No enlarged lymph nodes. Adrenals: 2.5 cm left adrenal nodule indeterminate. Bones/joints: Unremarkable. No acute fracture. Soft tissues: Unremarkable. IMPRESSION: 1. No acute abnormality. 2. 2.5 cm left adrenal nodule indeterminate. Unchanged from 04/14/2014. Electronically signed by: Zane Rocha On 11/22/2019 22:38:56 PM
[2019-11-22 23:00] VITALS: BP 151/68
--- NOTE | 2019-11-23 16:37 | ECGEPIP ---
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
== END 2019-11-22 23:08 | disposition home or self-care (01) ==
LOC: M ED 21:52
DX: R53.1 Weakness (principal); R41.82 Altered mental status, unspecified; R47.01 Aphasia; Z91.81 History of falling; Z79.01 Long term (current) use of anticoagulants; Z98.61 Coronary angioplasty status; Z88.8 Allergy status to other drugs, medicaments and biological substances; Z86.011 Personal history of benign neoplasm of the brain

== ENCOUNTER 2019-11-26 19:09 | Emergency (ER) | payer MEDICARE, MEDICAID ==
[~2019-11-26] VITALS: Ht 157.5 cm; Wt 45.5 kg
--- NOTE | 2019-11-26 20:08 | REPVR ---
PROCEDURE INFORMATION: Exam: CT Head Without Contrast Exam date and time: 11/26/2019 7:39 PM Age: 58 years old Clinical indication: Injury or trauma; Fall; Initial encounter; Blunt trauma (contusions or hematomas) TECHNIQUE: Imaging protocol: Computed tomography of the head without contrast. Radiation optimization: All CT scans at this facility use at least one of these dose optimization techniques: automated exposure control; mA and/or kV adjustment per patient size (includes targeted exams where dose is matched to clinical indication); or iterative reconstruction. COMPARISON: CT Head without contrast 11/22/2019 10:08 PM FINDINGS: Brain: Encephalomalacia/gliosis identified within the left frontal lobe, which is stable. There is a stable hypodense infarct involving the right parietal-occipital lobes. The white-guerrero differentiation is otherwise preserved demonstrating no acute territorial type infarct. There is moderate cerebral white matter hypodensity, likely representing small vessel ischemic disease in a patient this age. The acuity of the white matter disease is indeterminate. No acute intracranial hemorrhage is visualized. Midline shift: There is no midline shift. Ventricles: There is stable prominence of the ventricles and sulci, compatible with atrophy. Bones/joints: A stable left frontal craniotomy is visualized. Sinuses: Visualized sinuses are unremarkable. No fluid levels. Mastoid air cells: No mastoid effusion. Orbits: Bilateral orbital lens implants. Soft tissues: Mild soft tissue swelling of the left parietal scalp. Vasculature: Intracranial atherosclerosis visualized. IMPRESSION: 1. No acute intracranial hemorrhage or acute territorial type infarct. 2. Mild soft tissue swelling of the left parietal scalp. 3. Encephalomalacia/gliosis identified within the left frontal lobe, which is stable. There is a stable hypodense infarct involving the right parietal-occipital lobes. 4. There is moderate cerebral white matter hypodensity, likely representing small vessel ischemic disease in a patient this age. 5. Stable atrophy. 6. A stable left frontal craniotomy is visualized. Electronically signed by: Jaquan Field On 11/26/2019 20:07:41 PM
[2019-11-26 20:10] LABS: HEMATOCRIT 38.6 % (36.0-47.0); HEMOGLOBIN 12.6 g/dl (12.0-15.5); MEAN CORPUSCULAR HEMOGLOBIN 29.6 pg (27.0-33.0); MEAN CORPUSCULAR HGB CONC 32.6 g/dl (32.0-36.5); MEAN CORPUSCULAR VOLUME 90.8 fl (80.0-96.0); PLATELET COUNT, AUTOMATED 179 10^3/uL (150-450); RED BLOOD COUNT 4.25 10^6/uL (4.00-5.40); WHITE BLOOD COUNT 5.5 10^3/uL (4.0-10.0)
--- NOTE | 2019-11-26 20:14 | REPVR ---
PROCEDURE INFORMATION: Exam: CT Cervical Spine Without Contrast Exam date and time: 11/26/2019 7:39 PM Age: 58 years old Clinical indication: Injury or trauma; Fall; Initial encounter; Blunt trauma TECHNIQUE: Imaging protocol: Computed tomography images of the cervical spine without contrast. Radiation optimization: All CT scans at this facility use at least one of these dose optimization techniques: automated exposure control; mA and/or kV adjustment per patient size (includes targeted exams where dose is matched to clinical indication); or iterative reconstruction. COMPARISON: CT Spine,cervical w/o contrast 11/22/2019 10:08 PM FINDINGS: Vertebrae: No acute cervical spine fracture or subluxation. The facet alignment is preserved bilaterally. The occipital condyles and C1-C2 articulations appear intact. The cervical lordosis is straightened. Hypertrophic degenerative changes are identified at the junction of the anterior C1 arch and dens process. Discs/Spinal canal/Neural foramina: Facet arthropathy is identified at C2-C3 and C3-C4. Spondylosis is visualized at multiple cervical levels. A subcentimeter nonspecific sclerotic lesion is identified within the left occipital condyle. There is minimal narrowing of the ventral thecal sac at C5-C6, with a small disc protrusion. Soft tissues: No significant prevertebral soft tissue swelling. Lungs: No pneumothorax, as visualized. Vasculature: Atherosclerotic changes visualized. IMPRESSION: 1. No acute cervical spine fracture or subluxation. 2. The cervical lordosis is straightened. 3. Spondylosis is visualized at multiple cervical levels. 4. There is minimal narrowing of the ventral thecal sac at C5-C6, with a small disc protrusion. Electronically signed by: Jaquan Field On 11/26/2019 20:13:47 PM
[2019-11-26 20:35] LABS: BLOOD UREA NITROGEN 8 MG/DL (7-18); CARBON DIOXIDE LEVEL 22 MEQ/L (21-32); CHLORIDE LEVEL 113 MEQ/L (98-107); CREATININE FOR GFR 0.63 MG/DL (0.55-1.30); GLOMERULAR FILTRATION RATE > 60.0 (>51); GLUCOSE, FASTING 92 MG/DL (70-100); POTASSIUM SERUM 3.8 MEQ/L (3.5-5.1); SODIUM LEVEL 142 MEQ/L (136-145)
[2019-11-26 21:00] VITALS: BP 146/66
== END 2019-11-26 22:13 | disposition home or self-care (01) ==
LOC: M ED 20:06
DX: R26.81 Unsteadiness on feet (principal); S09.90XA Unspecified injury of head, initial encounter; X58.XXXA Exposure to other specified factors, initial encounter; Y92.9 Unspecified place or not applicable; Y93.9 Activity, unspecified; Y99.9 Unspecified external cause status; I25.10 Atherosclerotic heart disease of native coronary artery without angina pectoris; I25.2 Old myocardial infarction; M47.812 Spondylosis without myelopathy or radiculopathy, cervical region; M43.8X2 Other specified deforming dorsopathies, cervical region; M50.20 Other cervical disc displacement, unspecified cervical region; G93.89 Other specified disorders of brain; R90.89 Other abnormal findings on diagnostic imaging of central nervous system; Z98.890 Other specified postprocedural states; Z79.82 Long term (current) use of aspirin; Z79.899 Other long term (current) drug therapy; Z88.8 Allergy status to other drugs, medicaments and biological substances

== ENCOUNTER 2019-12-12 16:57 | Inpatient (IN) | payer MEDICARE, MEDICAID ==
[~2019-12-12] VITALS: Ht 157.5 cm; Wt 45.8 kg
[~2019-12-12 16:57] MED LIST changes: -TOPI200T7
[2019-12-12 17:37] LABS: BASO % 0.5 % (0.0-1.0); EOS # 0.1 10^3/uL (0.0-0.5); EOS % 0.9 % (0.0-3.0); HEMATOCRIT 41.3 % (36.0-47.0); HEMOGLOBIN 13.7 g/dl (12.0-15.5); LYMPH # 1.8 10^3/uL (1.5-5.0); LYMPH % 31.5 % (24.0-44.0); MEAN CORPUSCULAR HEMOGLOBIN 29.7 pg (27.0-33.0); MEAN CORPUSCULAR HGB CONC 33.2 g/dl (32.0-36.5); MEAN CORPUSCULAR VOLUME 89.4 fl (80.0-96.0); MONO # 0.5 10^3/uL (0.0-0.8); MONO % 7.8 % (0.0-5.0); NEUTROPHILS # 3.4 10^3/uL (1.5-8.5); NEUTROPHILS % 58.8 % (36.0-66.0); PLATELET COUNT, AUTOMATED 272 10^3/uL (150-450); RED BLOOD COUNT 4.62 10^6/uL (4.00-5.40); WHITE BLOOD COUNT 5.8 10^3/uL (4.0-10.0)
--- NOTE | 2019-12-12 17:38 | REPVR ---
PROCEDURE INFORMATION: Exam: CT Head Without Contrast Exam date and time: 12/12/2019 5:21 PM Age: 59 years old Clinical indication: Injury or trauma; Fall; Initial encounter; Blunt trauma (contusions or hematomas) TECHNIQUE: Imaging protocol: Computed tomography of the head without contrast. Radiation optimization: All CT scans at this facility use at least one of these dose optimization techniques: automated exposure control; mA and/or kV adjustment per patient size (includes targeted exams where dose is matched to clinical indication); or iterative reconstruction. COMPARISON: CT Head without contrast 11/26/2019 7:37 PM FINDINGS: Brain: No intracranial mass, focal mass effect or midline shift. No acute intracranial hemorrhage. Mild decreased attenuation in periventricular/centrum semiovale white matter. No focal effacement of cortical sulci to indicate acute cortical infarct. Ventricles: Prominent ventricles and CSF spaces suggest parenchymal volume loss. Left frontal volume loss consistent with prior surgery, with compensatory left lateral ventricle dilatation. Right occipital volume loss suggesting a prior infarct, unchanged Bones/joints: No calvarial fracture or destructive process. Left frontal craniotomy change Sinuses: Visualized paranasal sinuses are unremarkable. Mastoid air cells: Mastoid air cells are normally aerated. Orbits: Visualized globes and orbits are unremarkable. Soft tissues: Posterior vertex extracranial soft tissue swelling. IMPRESSION: 1. Posterior vertex extracranial scalp swelling 2. No acute intracranial abnormality. 3. Atrophy, stable chronic volume loss right occipital and left frontal and chronic microangiopathic change in supratentorial white matter. Electronically signed by: Anthony Kim On 12/12/2019 17:37:41 PM
[2019-12-12 17:48] LABS: INR 1.08; PARTIAL THROMBOPLASTIN TIME 27.7 SECONDS (25.0-38.4); PROTHROMBIN TIME 13.7 SECONDS (11.8-14.0)
--- NOTE | 2019-12-12 17:54 | REP ---
Portable chest x-ray: Single view. History: Preop. Comparison chest x-ray: October 14, 2017. Findings: Monitoring electrodes overlie the chest. The lungs are symmetrically aerated and clear. The heart is not enlarged. Pulmonary vasculature is not increased. No significant bony abnormality is seen. Impression: Negative portable chest x-ray. Electronically Signed by Nadeem Zamudio MD 12/12/2019 05:45 P
--- NOTE | 2019-12-12 17:55 | REP ---
Pelvis right hip: Three views. History: Trauma. Findings: AP view of the pelvis shows an intact bony pelvic ring. No pelvic or sacral fracture is seen. No proximal femur fracture is observed. There is minimal gaseous distension of the colon noted incidentally. AP and frog-leg views of the right hip demonstrate smooth rounded femoral head and intact hip joint space. Periarticular soft tissues are unremarkable. No bony erosive changes seen. Impression: Negative radiographs of the pelvis and right hip. Electronically Signed by Nadeem Zamudio MD 12/12/2019 05:47 P
--- NOTE | 2019-12-12 17:57 | REPVR ---
PROCEDURE INFORMATION: Exam: CT Right Lower Extremity Without Contrast, Hip Exam date and time: 12/12/2019 5:41 PM Age: 59 years old Clinical indication: Injury or trauma; Fall; Initial encounter; Blunt trauma; Hip; Right TECHNIQUE: Imaging protocol: CT of the Right lower extremity without contrast was performed. Exam focused on the hip. Radiation optimization: All CT scans at this facility use at least one of these dose optimization techniques: automated exposure control; mA and/or kV adjustment per patient size (includes targeted exams where dose is matched to clinical indication); or iterative reconstruction. COMPARISON: CT ABD PELVIS WITH CONTRAST 04/14/2014 9:51 PM FINDINGS: Osseous structures are aligned normally. No acute acetabular or proximal femur fracture or stress fracture. No obturator ring deformity. No evidence of femoral head osteonecrosis. No concerning osseous lesion. Hip joint space is maintained for age. Subcutaneous soft tissue swelling, posterior right gluteal region. Underlying hematoma involving the inferior gluteus maria d and posterior ischial soft tissues, measuring 10 cm transverse, 3.5 cm AP and 12 cm craniocaudal. IMPRESSION: Soft tissue hematoma involving the subcutaneous soft tissues of the posterior right buttock region, possibly involving the inferior aspect of the right gluteus maria d muscle and extending inferiorly, superficial to the intact hamstring insertion. Hematoma measures 10 x 3.5 x 12 cm. No acute fracture, osseous malalignment or advanced arthropathy of the hip given the patient's age Electronically signed by: Anthony Kim On 12/12/2019 17:56:50 PM
[2019-12-12 17:58] LABS: BLOOD UREA NITROGEN 10 MG/DL (7-18); CALCIUM LEVEL 8.9 MG/DL (8.5-10.1); CARBON DIOXIDE LEVEL 22 MEQ/L (21-32); CHLORIDE LEVEL 111 MEQ/L (98-107); CK-MB VALUE MASS 1.2 NG/ML (<3.6); CPK CREATINE PHOSPHOKINASE 85 U/L (26-192); CREATININE FOR GFR 0.73 MG/DL (0.55-1.30); GLOMERULAR FILTRATION RATE > 60.0 (>51); GLUCOSE, FASTING 96 MG/DL (70-100); MB/CK RELATIVE INDEX 1.41 (< OR =4); SODIUM LEVEL 140 MEQ/L (136-145); TROPONIN I < 0.02 NG/ML (< 0.10)
[2019-12-12] MEDS ORDERED: HYDR-3713 PO (18:58)
[2019-12-12] MEDS ORDERED: TRAZ-257 PO (18:58)
[2019-12-12] MEDS ORDERED: ACETAMINOPHEN TAB 650MG DOSE (2X325MG) PO PRN ×2 (19:15→20:30)
[2019-12-12] MEDS ORDERED: ONDANSETRON 4MG/2ML VIAL IV PRN (19:15)
[2019-12-12] MEDS ORDERED: NITROGLYCERIN 0.4 MG SUBL TABLET SL PRN (19:15)
[2019-12-12] MEDS ORDERED: amLODIPine 10 MG TAB PO ONE (19:15)
[2019-12-12] MEDS ORDERED: ACETAMINOPHEN TAB 650MG DOSE (2X325MG) PO ONE (20:30)
[2019-12-12 21:57] VITALS: BP 144/75
[2019-12-12] MEDS: TOPIRAMATE (TopAMAX) 100 MG TAB PO SCH (22:22)
[2019-12-12] MEDS: traZODone 100 MG TAB PO SCH (22:22)
[2019-12-12] MEDS: LACOSAMIDE 50 MG TAB (VIMPAT) PO SCH (22:22)
[2019-12-13 06:00] VITALS: BP 124/63
[2019-12-13 06:18] LABS: HEMATOCRIT 40.1 % (36.0-47.0); HEMOGLOBIN 13.3 g/dl (12.0-15.5); MEAN CORPUSCULAR HEMOGLOBIN 29.6 pg (27.0-33.0); MEAN CORPUSCULAR HGB CONC 33.2 g/dl (32.0-36.5); MEAN CORPUSCULAR VOLUME 89.1 fl (80.0-96.0); PLATELET COUNT, AUTOMATED 238 10^3/uL (150-450); WHITE BLOOD COUNT 5.8 10^3/uL (4.0-10.0)
--- NOTE | 2019-12-13 06:27 | ECGEPIP ---
[facility] - ED Test Date: 2019-12-12 Pat Name: STACIE CRUZ Department: Room: - Gender: Female [employer] Administrator: ELMA : [id number] Requested By: Sammi Lantigua Order Number: [id number] Reading MD: Sammi Lantigua Measurements Intervals [place] Rate: 57 P: 51 HI: 160 QRS: 34 QRSD: 101 T: 33 QT: 438 QTc: 429 Interpretive Statements SINUS BRADYCARDIA NONSPECIFIC ST T WAVE CHANGES BASELINE ARTIFACT MAY AFFECT READING CW 11/21/[address] T WAVE CHANGES Electronically Signed on 12-13-2019 6:26:40 EDT by Sammi Lantigua
[2019-12-13 06:36] LABS: BLOOD UREA NITROGEN 14 MG/DL (7-18); CALCIUM LEVEL 8.7 MG/DL (8.5-10.1); CARBON DIOXIDE LEVEL 22 MEQ/L (21-32); CHLORIDE LEVEL 112 MEQ/L (98-107); CREATININE FOR GFR 0.84 MG/DL (0.55-1.30); GLOMERULAR FILTRATION RATE > 60.0 (>51); GLUCOSE, FASTING 93 MG/DL (70-100); POTASSIUM SERUM 3.6 MEQ/L (3.5-5.1); SODIUM LEVEL 140 MEQ/L (136-145)
--- NOTE | 2019-12-13 08:38 | HPE ---
DATE OF ADMISSION: 12/12/2019 PRIMARY CARE PHYSICIAN: Dr. Danny Hernandez NEUROLOGIST: Dr. Carballo NEUROSURGEON: Dr. Ko in [facility] ([facility] in [place], [place]. CHIEF COMPLAINT: Fall. 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 Per the niece, Kinza Montana, who is her healthcare proxy, phone number [phone]. The patient usually falls once a week and has a Life Alert necklace. The patient says that she was in a hallway when she was attempting to ambulate with her cane when she fell forward on the right side landing on the right side of her face injuring her right buttock. The patient's Life Alert bracelet was activated and Emergency Medical Services (EMS) was called to her home. She was found on the ground. She has no recollection of how long she was on the floor, but did not think that it was a long time. The patient says that she has been feeling well the last few days. Denies any chest pain, pressure or tightness, shortness of breath, palpitations, lightheadedness or dizziness, and says that usually her legs feel like give out and says she has a bad right hip. The patient also denies any hematemesis, bright red blood per rectum, melena, or black tarry stools. She denies nausea, vomiting, diarrhea, dysuria, urgency, frequency, fever, chills, or flank pain. The patient says that she does fall about once a week and according to the niece, she has been increasingly dependent on the home care health aide that comes twice a week. The patient does have an adult protective transportation services representative named Stephen Leon and receives Meals on Wheels. According to her healthcare proxy, Kinza Montana, the patient was open to being placed but unable to get into any mcc. She does have two grown children, who are not involved in her case, one lives in [place], the other is in [place], both of whom have younger children and active jobs, they are unable to take care of her. The patient has designated her niece, Kinza Montana to be her healthcare proxy. According to the niece, the patient's speech has been increasingly worse even though she usually speaks very slowly. She has had increasing difficulty with finding the right words to say. The niece also calls her on the phone to check up on how she has been and for the past few weeks she appeared to be much more inappropriate. For example, she would ask whether she has had any food and whether she has enough food at home and the patient would say "100 dollars, 100 dollars" and she often times will say "you know, you know." During this interview, the patient gets very frustrated when trying to answer questions and she would always say "I do myself by myself." In the emergency room (ER), she was found to have a right gluteal contusion hematoma. CT of the head was negative. Complete blood count (CBC), metabolic panel, and cardiac markers were unremarkable. Hospitalist service was asked to admit due to gait ataxia from history of astroglioma with recurrence and resection times two and for possible placement. PAST MEDICAL HISTORY: 1. Coronary artery disease (CAD) status post myocardial infarction (MA) with stent in 1998, 2. Hypertension. 3. 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 4. Osteoarthritis of the hip and knees. 5. Hyperlipidemia. ALLERGIES: To COMPAZINE. PAST SURGICAL HISTORY: 1. Astroglioma resection times two. The second one was in 2014. She follows with Dr. Ko, neurosurgeon at [facility] in [place], where she was last seen in September 2019. 2. Stent placement after an MA in 1998. HOME MEDICATIONS: - aspirin 81 mg nightly - atenolol 100 mg daily - hydrocodone/acetaminophen 5/325 one tablet every 6 as needed - Vimpat 200 mg twice a day - nitroglycerin as needed 0.4 mg every 5 minutes - Topamax 200 mg twice a day - trazodone 100 mg at bedtime SOCIAL HISTORY: The patient lives alone, has a Life Alert system, wears a necklace. She continues to smoke a pack a day of cigarettes, has been smoking for over 10 years. No alcohol use. Currently disabled due to prior history of astroglioma with recurrence. 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 She is DO NOT RESUSCITATE, DO NOT INTUBATE. Healthcare proxy is Kinza Montana, niece, phone number [phone]. MOLST form has been signed. The patient does have two grown children, a son who lives in [place], another one in [place]. She has a younger brother who lives in the [place] area. Her niece also lives in the area, Kinza Montana. FAMILY HISTORY: Father in his 60s of lung cancer. Mother is still living in her 90s with coronary artery disease. Her older sister, Kierra, had of lung cancer. That is Kinza Montana's mother. REVIEW OF SYSTEMS: Per history of present illness (HPI), 12 point system otherwise negative. PHYSICAL EXAMINATION: Temperature 96.0, pulse 68, respiratory rate 16, blood pressure 168/80, 98% on room air. Generally, the patient appears emaciated. She appears older than her stated age with alopecia on the left side of her scalp and postoperative scarring on the left scalp. HEENT: The patient has bruising right upper eyelid. Pupils are round and reactive. She is slow to speak with some expressive aphasia. Face is symmetric, however. Tongue is midline. No cervical lymphadenopathy or thyromegaly. Lungs are clear to auscultation. There is no wheezing, rales or rhonchi. Heart: S1, S2. Sinus rhythm. Abdomen is soft, nontender, nondistended. Positive bowel sounds. Extremities have no pitting edema. Motor Function: The patient has 5/5 motor function in bilateral lower extremities. No sensory disturbance. Upper extremities 5/5. Gait was not tested. There is hematoma of the right buttocks. LABORATORY DATA: INR 1.08. White count 5.8, hemoglobin 13, hematocrit 41, platelet count 272, 58% neutrophils, 31% lymphocytes, 7.8 monocytes. Sodium 140, potassium 4, chloride 111, bicarbonate 22, BUN 10, creatinine 0.73, glucose 96. Calcium 8.9. Total CK 85, MB fraction 1.2. Troponin less than 0.02. CT of the head: Posterior vertex extracranial scalp swelling. No acute intracranial abnormality. Atrophy, stable chronic volume loss with right occipital and left frontal and chronic microangiopathic change in the supratentorial white matter. Chest x-ray: No acute cardiopulmonary disease. No bony abnormality. Hip and pelvic x-ray: Negative radiographs of pelvis and right hip. CT of the right lower extremity: Soft tissue hematoma involving the subcutaneous soft tissues at the posterior right buttock involving the inferior aspect of the gluteus maria d muscle extending inferiorly superficial to the intact hamstring insertion. Hematoma measures 10 x 3.5 x 12 cm. ASSESSMENT AND PLAN: This is a 59-year-old, DO NOT RESUSCITATE, DO NOT INTUBATE, female with a history of astroglioma with recurrence status post resection times two, coronary artery disease, myocardial infarction, stent placement 1998, follows with Dr. Norris as outpatient, on seizure prophylaxis by Dr. Carballo, and sees a neurosurgeon named Dr. Ko in [facility] in [place], has had history of multiple falls at home, lives alone, presents today with a fall sustaining a right gluteal hematoma and right upper eyelid bruising. The patient is admitted for gait ataxia with known history of expressive aphasia for possible placement and pain control along rehabilitation evaluation. IMPRESSION: 1. Recurrent falls most likely secondary to history of astroglioma with resection times two with gait ataxia, acute rehabilitation unit (ARU) screened. The patient will be placed near the nurses station. Assisted ambulation only. Continue with physical therapy (PT), occupational therapy (OT). Aspirin will be held just for one day, resumed again tomorrow, to prevent extension of the hematoma. Per the patient, she has had a recent MRI of the brain done by Dr. Carballo. We will try to obtain the records on Saturday. 2. Right gluteal hematoma secondary to fall. Her aspirin will be held for one day and resumed again tomorrow to prevent extension of the hematoma. Pain management with Tylenol for now. Avoid any sedatives, hypnotics or significant opioids. She may be resumed on her home dose of hydrocodone, however, she has had that for several years. 3. Astroglioma with recurrence times two resections. Follows with Dr. Ko, Neurosurgery at [place]. Obtain records from Dr. Ko's office. Obtain recent MRI from Dr. Carballo's office on Saturday. The patient continues to have significant expressive aphasia and gait ataxia. We will review the records and decide whether a neurologic consult is warranted. CT of the head shows no hematoma or bleed in the brain at this time. She is to have assisted ambulation at all times and ARU evaluation. 4. History of coronary artery disease, myocardial infarction, and stent. The patient's cardiac marker was negative. She denies any acute ischemic symptoms prior to the fall and on admission. She can be resumed back on her home atenolol and as needed nitroglycerin, as well as her statin. Aspirin will be held for one day to prevent extension of the hematoma and may be resumed back tomorrow. 5. Hypertension, uncontrolled secondary to pain. She is resumed on her home dose of atenolol, which she had taken this morning. She will be given Norvasc 10 mg times one with holding parameters for systolic pressure less than 120. 6. Chronic right hip arthritis. The patient had CT performed. No subluxation or hip fracture noted. The hip and pelvic x-ray shows no fractures, negative scans. Tylenol as needed. 7. Hyperlipidemia. Check a lipid profile in the morning. 8. Code status is DO NOT RESUSCITATE, DO NOT INTUBATE. MOLST form has been signed. Patient and family services (PFS) consult for potential placement. DOMINGUEZ
[2019-12-13] MEDS: TOPIRAMATE (TopAMAX) 100 MG TAB PO SCH ×2 (09:30→21:12)
[2019-12-13] MEDS: LACOSAMIDE 50 MG TAB (VIMPAT) PO SCH ×2 (09:30→21:12)
[2019-12-13] MEDS: NORCO, ANEXSIA 5/325MG TABLET (HYDROcodone/ACETAMINOPHEN) PO PRN (09:31)
[2019-12-13] MEDS: atenoloL 50 MG TAB PO SCH (09:31)
--- NOTE | 2019-12-13 12:44 | IPNPDOC ---
Text Note Date of Service The patient was seen on 12/13/19. NOTE Subjective: No any acute events overnight. Patient denied fever, chills, nausea, vomiting, diarrhea or dysuria Objective: VITAL SIGNS: Please see below. GENERAL: awake, alert, NAD HEENT: small hematoma over right upper eyelid , anicteric sclera, PERRLA NECK: supple, no JVD CARDIOVASCULAR EXAMINATION: NS1S2, regular rate/rhythm RESPIRATORY EXAMINATION: CTA b/l, no wheezes/rales/rhonchi ABDOMINAL EXAMINATION: positive bowel sounds x 4, NT EXTREMITIES: no cyanosis, clubbing, edema SKIN: warm, no rashes. NEUROLOGICAL EXAMINATION: AAO x 3, no nuchal rigidity, aphasia Patient is 72 years old female with past medical history of astroglioma with recurrence status post resection times two, coronary artery disease, myocardial infarction, stent placement 1998, follows with Dr. Norris as outpatient, on seizure prophylaxis presented hospital after mechanical fall due to slippage most likely secondary to ataxia. Recurrent mechanical falls Patient has a history of astroglioma with recurrence status post resection times two. Most likely patient developed ataxia PT/OT ARU screening Right gluteal hematoma Pain management Astroglioma with recurrence times two resections Follow-up with neurologist in the outpatient settings CT head was done and it was negative for stroke or bleed Coronary artery diseases I resumed aspirin Continue home cardioprotective medications Hypertension Blood pressures under control Continue home meds Chronic right hip arthritis Imaging study negative for fracture or subluxation Pain management VS,Fishbone, I+O VS, Fishbone, I+O Laboratory Tests 12/12/19 17:23 12/13/19 05:53 Vital Signs Date Time Temp Pulse Resp B/P (MAP) Pulse Ox O2 Delivery O2 Flow Rate FiO2 12/13/19 10:01 16 12/13/19 09:31 62 121/63 12/13/19 06:00 98.3 98 Room Air I&O- Last 24 Hours up to 6 AM 12/13/19 06:00 Intake Total 100 ml Output Total 100 ml Balance 0 ml DEIDRE MARTINEZ DO Dec 13, 2019 12:44
[2019-12-13] MEDS ORDERED: POTASSIUM CHLORIDE 10 MEQ SR TABLET PO ONE (13:00)
[2019-12-13 14:00] VITALS: BP 102/59
[2019-12-13] MEDS: traZODone 100 MG TAB PO SCH (21:12)
[2019-12-13] MEDS: ASPIRIN 81 MG ENTERIC TAB PO SCH (21:12)
[2019-12-13 21:15] VITALS: BP 129/66
[2019-12-13 22:00] VITALS: BP 127/66
[2019-12-14 06:00] VITALS: BP 117/63
[2019-12-14 06:10] LABS: HEMATOCRIT 40.2 % (36.0-47.0); HEMOGLOBIN 13.5 g/dl (12.0-15.5); MEAN CORPUSCULAR HGB CONC 33.6 g/dl (32.0-36.5); MEAN CORPUSCULAR VOLUME 89.3 fl (80.0-96.0); PLATELET COUNT, AUTOMATED 240 10^3/uL (150-450); WHITE BLOOD COUNT 4.9 10^3/uL (4.0-10.0)
[2019-12-14 06:32] LABS: BLOOD UREA NITROGEN 10 MG/DL (7-18); CALCIUM LEVEL 8.4 MG/DL (8.5-10.1); CARBON DIOXIDE LEVEL 21 MEQ/L (21-32); CHLORIDE LEVEL 112 MEQ/L (98-107); CREATININE FOR GFR 0.58 MG/DL (0.55-1.30); GLOMERULAR FILTRATION RATE > 60.0 (>51); GLUCOSE, FASTING 87 MG/DL (70-100); POTASSIUM SERUM 4.1 MEQ/L (3.5-5.1); SODIUM LEVEL 138 MEQ/L (136-145)
[2019-12-14] MEDS: LACOSAMIDE 50 MG TAB (VIMPAT) PO SCH ×2 (09:12→21:47)
[2019-12-14] MEDS: atenoloL 50 MG TAB PO SCH (09:12)
[2019-12-14] MEDS: TOPIRAMATE (TopAMAX) 100 MG TAB PO SCH ×2 (09:13→21:46)
[2019-12-14] MEDS: NORCO, ANEXSIA 5/325MG TABLET (HYDROcodone/ACETAMINOPHEN) PO PRN (09:16)
--- NOTE | 2019-12-14 12:18 | IPNPDOC ---
Text Note Date of Service The patient was seen on 12/14/19. NOTE Subjective: No any acute events overnight. Await ARU evaluation. Patient denied fever, chills, nausea, vomiting, diarrhea or dysuria Objective: VITAL SIGNS: Please see below. GENERAL: awake, alert, NAD HEENT: small hematoma over right upper eyelid , anicteric sclera, PERRLA NECK: supple, no JVD CARDIOVASCULAR EXAMINATION: NS1S2, regular rate/rhythm RESPIRATORY EXAMINATION: CTA b/l, no wheezes/rales/rhonchi ABDOMINAL EXAMINATION: positive bowel sounds x 4, NT EXTREMITIES: no cyanosis, clubbing, edema SKIN: warm, no rashes. NEUROLOGICAL EXAMINATION: AAO x 3, no nuchal rigidity, aphasia Patient is 72 years old female with past medical history of astroglioma with recurrence status post resection times two, coronary artery disease, myocardial infarction, stent placement 1998, follows with Dr. Norris as outpatient, on seizure prophylaxis presented hospital after mechanical fall due to slippage most likely secondary to ataxia. Recurrent mechanical falls Patient has a history of astroglioma with recurrence status post resection times two. Most likely patient developed ataxia PT/OT ARU screening Right gluteal hematoma Pain management Astroglioma with recurrence times two resections Follow-up with neurologist in the outpatient settings CT head was done and it was negative for stroke or bleed Coronary artery diseases I resumed aspirin Continue home cardioprotective medications Hypertension Blood pressures under control Continue home meds Chronic right hip arthritis Imaging study negative for fracture or subluxation Pain management VS,Fishbone, I+O VS, Fishbone, I+O Laboratory Tests 12/14/19 05:47 Vital Signs Date Time Temp Pulse Resp B/P (MAP) Pulse Ox O2 Delivery O2 Flow Rate FiO2 12/14/19 09:46 16 12/14/19 09:12 65 130/70 12/14/19 06:00 98.5 96 Room Air I&O- Last 24 Hours up to 6 AM 12/14/19 06:00 Intake Total 970 ml Output Total 1300 ml Balance -330 ml DEIDRE MARTINEZ DO Dec 14, 2019 12:18
[2019-12-14 14:00] VITALS: BP 130/69
[2019-12-14] MEDS: ASPIRIN 81 MG ENTERIC TAB PO SCH (21:46)
[2019-12-14] MEDS: traZODone 100 MG TAB PO SCH (21:46)
[2019-12-14 22:00] VITALS: BP 131/69
[2019-12-15 06:00] VITALS: BP 137/68
[2019-12-15 07:07] LABS: HEMATOCRIT 42.1 % (36.0-47.0); HEMOGLOBIN 14.1 g/dl (12.0-15.5); MEAN CORPUSCULAR HEMOGLOBIN 30.3 pg (27.0-33.0); MEAN CORPUSCULAR HGB CONC 33.5 g/dl (32.0-36.5); MEAN CORPUSCULAR VOLUME 90.3 fl (80.0-96.0); PLATELET COUNT, AUTOMATED 243 10^3/uL (150-450); RED BLOOD COUNT 4.66 10^6/uL (4.00-5.40); WHITE BLOOD COUNT 4.9 10^3/uL (4.0-10.0)
[2019-12-15 07:29] LABS: BLOOD UREA NITROGEN 13 MG/DL (7-18); CALCIUM LEVEL 9.1 MG/DL (8.5-10.1); CARBON DIOXIDE LEVEL 22 MEQ/L (21-32); CHLORIDE LEVEL 112 MEQ/L (98-107); CREATININE FOR GFR 0.62 MG/DL (0.55-1.30); GLOMERULAR FILTRATION RATE > 60.0 (>51); GLUCOSE, FASTING 88 MG/DL (70-100); POTASSIUM SERUM 4.3 MEQ/L (3.5-5.1); SODIUM LEVEL 140 MEQ/L (136-145)
[2019-12-15] MEDS: TOPIRAMATE (TopAMAX) 100 MG TAB PO SCH ×2 (09:23→21:26)
[2019-12-15] MEDS: LACOSAMIDE 50 MG TAB (VIMPAT) PO SCH ×2 (09:23→21:25)
[2019-12-15] MEDS: atenoloL 50 MG TAB PO SCH (09:25)
--- NOTE | 2019-12-15 13:47 | IPNPDOC ---
Text Note Date of Service The patient was seen on 12/15/19. NOTE Subjective: No any acute events overnight. Await ARU evaluation. Good appetite Patient denied fever, chills, nausea, vomiting, diarrhea or dysuria Objective: VITAL SIGNS: Please see below. GENERAL: awake, alert, NAD HEENT: small hematoma over right upper eyelid , anicteric sclera, PERRLA NECK: supple, no JVD CARDIOVASCULAR EXAMINATION: NS1S2, regular rate/rhythm RESPIRATORY EXAMINATION: CTA b/l, no wheezes/rales/rhonchi ABDOMINAL EXAMINATION: positive bowel sounds x 4, NT EXTREMITIES: no cyanosis, clubbing, edema SKIN: warm, no rashes. NEUROLOGICAL EXAMINATION: AAO x 3, no nuchal rigidity, aphasia Patient is 59 years old female with past medical history of astroglioma with recurrence status post resection times two, coronary artery disease, myocardial infarction, stent placement 1998, follows with Dr. Norris as outpatient, on seizure prophylaxis presented hospital after mechanical fall due to slippage most likely secondary to ataxia. Recurrent mechanical falls Patient has a history of astroglioma with recurrence status post resection times two. Most likely patient developed ataxia after surgery PT/OT ARU screening Right gluteal hematoma Pain management Astroglioma with recurrence times two resections Follow-up with neurologist in the outpatient settings CT head was done and it was negative for stroke or bleed Coronary artery diseases I resumed aspirin Continue home cardioprotective medications Hypertension Blood pressures under control Continue home meds Chronic right hip arthritis Imaging study negative for fracture or subluxation Pain management VS,Fishbone, I+O VS, Fishbone, I+O Laboratory Tests 12/15/19 06:35 Vital Signs Date Time Temp Pulse Resp B/P (MAP) Pulse Ox O2 Delivery O2 Flow Rate FiO2 12/15/19 09:25 66 127/103 12/15/19 06:00 96.9 18 98 Room Air I&O- Last 24 Hours up to 6 AM 12/15/19 05:59 Intake Total 690 ml Output Total 700 ml Balance -10 ml DEIDRE MARTINEZ DO Dec 15, 2019 13:47
[2019-12-15 14:00] VITALS: BP 123/58
[2019-12-15] MEDS: ASPIRIN 81 MG ENTERIC TAB PO SCH (21:26)
[2019-12-15] MEDS: traZODone 100 MG TAB PO SCH (21:26)
[2019-12-15 22:00] VITALS: BP 122/66
[2019-12-16 06:00] VITALS: BP 114/54
[2019-12-16 06:38] LABS: HEMOGLOBIN 14.2 g/dl (12.0-15.5); MEAN CORPUSCULAR HEMOGLOBIN 30.2 pg (27.0-33.0); MEAN CORPUSCULAR HGB CONC 33.8 g/dl (32.0-36.5); MEAN CORPUSCULAR VOLUME 89.4 fl (80.0-96.0); PLATELET COUNT, AUTOMATED 239 10^3/uL (150-450); WHITE BLOOD COUNT 4.7 10^3/uL (4.0-10.0)
[2019-12-16 07:17] LABS: BLOOD UREA NITROGEN 13 MG/DL (7-18); CALCIUM LEVEL 8.8 MG/DL (8.5-10.1); CARBON DIOXIDE LEVEL 21 MEQ/L (21-32); CHLORIDE LEVEL 112 MEQ/L (98-107); CREATININE FOR GFR 0.65 MG/DL (0.55-1.30); GLOMERULAR FILTRATION RATE > 60.0 (>51); GLUCOSE, FASTING 87 MG/DL (70-100); POTASSIUM SERUM 4.1 MEQ/L (3.5-5.1); SODIUM LEVEL 140 MEQ/L (136-145)
[2019-12-16] MEDS: atenoloL 50 MG TAB PO SCH (09:00)
[2019-12-16] MEDS: TOPIRAMATE (TopAMAX) 100 MG TAB PO SCH ×2 (09:30→21:44)
[2019-12-16] MEDS: LACOSAMIDE 50 MG TAB (VIMPAT) PO SCH ×2 (09:30→21:44)
[2019-12-16 09:33] VITALS: BP 116/57
[2019-12-16 14:00] VITALS: BP 115/56
[2019-12-16] MEDS: ASPIRIN 81 MG ENTERIC TAB PO SCH (21:44)
[2019-12-16] MEDS: traZODone 100 MG TAB PO SCH (21:44)
[2019-12-16 22:00] VITALS: BP 134/67
[2019-12-17 06:00] VITALS: BP 130/70
[2019-12-17 07:31] LABS: HEMATOCRIT 41.6 % (36.0-47.0); HEMOGLOBIN 13.8 g/dl (12.0-15.5); MEAN CORPUSCULAR HEMOGLOBIN 29.6 pg (27.0-33.0); MEAN CORPUSCULAR HGB CONC 33.2 g/dl (32.0-36.5); MEAN CORPUSCULAR VOLUME 89.1 fl (80.0-96.0); PLATELET COUNT, AUTOMATED 242 10^3/uL (150-450); RED BLOOD COUNT 4.67 10^6/uL (4.00-5.40); WHITE BLOOD COUNT 5.2 10^3/uL (4.0-10.0)
[2019-12-17 07:52] LABS: BLOOD UREA NITROGEN 13 MG/DL (7-18); CARBON DIOXIDE LEVEL 21 MEQ/L (21-32); CHLORIDE LEVEL 110 MEQ/L (98-107); CREATININE FOR GFR 0.61 MG/DL (0.55-1.30); GLOMERULAR FILTRATION RATE > 60.0 (>51); GLUCOSE, FASTING 98 MG/DL (70-100); POTASSIUM SERUM 3.9 MEQ/L (3.5-5.1); SODIUM LEVEL 137 MEQ/L (136-145)
[2019-12-17] MEDS: LACOSAMIDE 50 MG TAB (VIMPAT) PO SCH ×2 (10:52→20:59)
[2019-12-17] MEDS: TOPIRAMATE (TopAMAX) 100 MG TAB PO SCH ×2 (10:52→21:00)
[2019-12-17] MEDS: atenoloL 50 MG TAB PO SCH (10:52)
[2019-12-17] MEDS: ASPIRIN 81 MG ENTERIC TAB PO SCH (21:00)
[2019-12-17] MEDS: traZODone 100 MG TAB PO SCH (21:00)
[2019-12-18 05:34] VITALS: BP 112/60
[2019-12-18 06:26] LABS: HEMATOCRIT 42.9 % (36.0-47.0); HEMOGLOBIN 14.2 g/dl (12.0-15.5); MEAN CORPUSCULAR HEMOGLOBIN 30.1 pg (27.0-33.0); MEAN CORPUSCULAR HGB CONC 33.1 g/dl (32.0-36.5); MEAN CORPUSCULAR VOLUME 91.1 fl (80.0-96.0); PLATELET COUNT, AUTOMATED 244 10^3/uL (150-450); RED BLOOD COUNT 4.71 10^6/uL (4.00-5.40); WHITE BLOOD COUNT 5.4 10^3/uL (4.0-10.0)
[2019-12-18 06:46] LABS: BLOOD UREA NITROGEN 17 MG/DL (7-18); CALCIUM LEVEL 8.3 MG/DL (8.5-10.1); CARBON DIOXIDE LEVEL 21 MEQ/L (21-32); CHLORIDE LEVEL 111 MEQ/L (98-107); CREATININE FOR GFR 0.66 MG/DL (0.55-1.30); GLOMERULAR FILTRATION RATE > 60.0 (>51); GLUCOSE, FASTING 91 MG/DL (70-100); POTASSIUM SERUM 4.1 MEQ/L (3.5-5.1); SODIUM LEVEL 138 MEQ/L (136-145)
[2019-12-18] MEDS: TOPIRAMATE (TopAMAX) 100 MG TAB PO SCH (09:35)
[2019-12-18] MEDS: LACOSAMIDE 50 MG TAB (VIMPAT) PO SCH (09:35)
[2019-12-18 09:38] VITALS: BP 122/65
[2019-12-18] MEDS: atenoloL 50 MG TAB PO SCH (09:38)
--- NOTE | 2019-12-18 16:59 | DS.PDOC ---
Discharge Summary General Date of Admission Dec 12, 2019 at 19:07 Date of Discharge 12/18/19 Discharge Summary PROCEDURES PERFORMED DURING STAY: [None]. ADMITTING DIAGNOSES: Recurrent mechanical falls Right gluteal hematoma Coronary artery diseases Astroglioma with recurrence times two resections Chronic right hip arthritis Hypertension DISCHARGE DIAGNOSES: Recurrent mechanical falls Right gluteal hematoma Coronary artery diseases Astroglioma with recurrence times two resections Chronic right hip arthritis Hypertension COMPLICATIONS/CHIEF COMPLAINT: Accidental Fall Contusion Buttocks Gait Instabil it. 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 Norris as outpatient, on seizure prophylaxis presented hospital after mechanical fall due to slippage most likely secondary to ataxia. HOSPITAL COURSE: During hospital stay the following issue addressed Recurrent mechanical falls Patient has a history of astroglioma with recurrence status post resection times two. Most likely patient developed ataxia after surgery PT/OT ARU screening Right gluteal hematoma Pain management Astroglioma with recurrence times two resections Follow-up with neurologist in the outpatient settings CT head was done and it was negative for stroke or bleed Coronary artery diseases I resumed aspirin Continue home cardioprotective medications Hypertension Blood pressures under control Continue home meds Chronic right hip arthritis Imaging study negative for fracture or subluxation Pain management DISCHARGE MEDICATIONS: Please see below. ALLERGIES: Please see below. PHYSICAL EXAMINATION ON DISCHARGE: VITAL SIGNS: Please see below. VITAL SIGNS: Please see below. GENERAL: awake, alert, NAD HEENT: small hematoma over right upper eyelid , anicteric sclera, PERRLA NECK: supple, no JVD CARDIOVASCULAR EXAMINATION: NS1S2, regular rate/rhythm RESPIRATORY EXAMINATION: CTA b/l, no wheezes/rales/rhonchi ABDOMINAL EXAMINATION: positive bowel sounds x 4, NT EXTREMITIES: no cyanosis, clubbing, edema SKIN: warm, no rashes. NEUROLOGICAL EXAMINATION: AAO x 3, no nuchal rigidity, aphasia LABORATORY DATA: Please see below. IMAGING: [facility] NAME: STACIE CRUZ DATE OF : 1960 BUSINESS NUMBER: [id number] AGE: 59 SEX: F REPORT #: [id number] ROOM: ED TECHNOLOGIST[facility] DOCTOR: Sammi Lantigua MD Ordered for Date&Time: 12/12/19 1710 cc: [~ rep ct ivnm] Service Date&Time: 12/12/19 1721 This report is in Signed status. Interpretation performed by [facility]. Thank you for having your radiology procedures performed at [facility] RADIOLOGY REPORT Date&Time printed: [~ rep prt dt last] [~ rep prt tm last] Page 2 of [address] [address] RADIOLOGY REPORT This report is in Signed status. Interpretation performed by [facility]. Thank you for having your radiology procedures performed at [facility] RADIOLOGY REPORT Date&Time printed: [~ rep prt dt last] [~ rep prt tm last] Page 1 of 2 PROCEDURE INFORMATION: Exam: CT Head Without Contrast Exam date and time: 12/12/2019 5:21 PM Age: 59 years old Clinical indication: Injury or trauma; Fall; Initial encounter; Blunt trauma (contusions or hematomas) TECHNIQUE: Imaging protocol: Computed tomography of the head without contrast. Radiation optimization: All CT scans at this facility use at least one of these dose optimization techniques: automated exposure control; mA and/or kV adjustment per patient size (includes targeted exams where dose is matched to clinical indication); or iterative reconstruction. COMPARISON: CT Head without contrast 11/26/2019 7:37 PM FINDINGS: Brain: No intracranial mass, focal mass effect or midline shift. No acute intracranial hemorrhage. Mild decreased attenuation in periventricular/centrum semiovale white matter. No focal effacement of cortical sulci to indicate acute cortical infarct. Ventricles: Prominent ventricles and CSF spaces suggest parenchymal volume loss. Left frontal volume loss consistent with prior surgery, with compensatory left lateral ventricle dilatation. Right occipital volume loss suggesting a prior infarct, unchanged Bones/joints: No calvarial fracture or destructive process. Left frontal craniotomy change Sinuses: Visualized paranasal sinuses are unremarkable. Mastoid air cells: Mastoid air cells are normally aerated. Orbits: Visualized globes and orbits are unremarkable. Soft tissues: Posterior vertex extracranial soft tissue swelling. IMPRESSION: 1. Posterior vertex extracranial scalp swelling 2. No acute intracranial abnormality. 3. Atrophy, stable chronic volume loss right occipital and left frontal and chronic microangiopathic change in supratentorial white matter. Electronically signed by: Anthony Kim On 12/12/2019 17:37:41 PM DD: ANTHONY KIM MD 12/12/19 1721 DT: KAYLYNN 12/12/19 1737 DS: SARAH 12/12/19 173 [~ rep ct labl] PROGNOSIS: fair ACTIVITY: [As tolerated]. DIET: fair DISPOSITION: 06 Home Health Service. ITEMS TO FOLLOWUP ON ON OUTPATIENT: PCP, neurologist DISCHARGE CONDITION: [Stable]. TIME SPENT ON DISCHARGE: Greater than 20 minutes. Vital Signs/I&Os Vital Signs Date Time Temp Pulse Resp B/P (MAP) Pulse Ox O2 Delivery O2 Flow Rate FiO2 12/18/19 09:38 65 122/65 12/18/19 05:38 12/18/19 05:34 97.8 97 Room Air I&O- Last 24 Hours up to 6 AM 12/18/19 05:59 Intake Total 1200 ml Output Total 0 ml Balance 1200 ml Laboratory Data Labs 24H Laboratory Tests 2 12/18/19 06:02: Nucleated Red Blood Cells % (auto) 0.0 12/18/19 06:03: Anion Gap 6L, Glomerular Filtration Rate > 60.0, Calcium Level 8.3L CBC/BMP Laboratory Tests 12/18/19 06:02 12/18/19 06:03 Discharge Medications Scheduled Aspirin (Aspirin EC) 81 Mg Tab, 81 MG PO QHS, (Reported) Atenolol (Atenolol) 100 Mg Tab, 100 MG PO DAILY, (Reported) Lacosamide (Vimpat) 200 Mg Tab, 200 MG PO BID, (Reported) Topiramate (Topiramate) 200 Mg Tablet, 200 MG PO BID, (Reported) Trazodone HCl (Trazodone HCl) 100 Mg Tablet, 100 MG PO QHS, (Reported) Scheduled PRN Hydrocodone/Acetaminophen (Hydrocodone-Acetamin 5-325 mg) 1 Each Tablet, 1 TAB PO Q6H PRN for PAIN, (Reported) MDD 4 Nitroglycerin (Nitrostat) 0.4 Mg Subl, 0.4 MG SL Q5MP PRN for CHEST PAIN, (Reported) Allergies Coded Allergies: prochlorperazine (Verified Adverse Reaction, Intermediate, anxiety/dystonic reaction, 11/22/19) patient unable to answer 01/13/19. when asked what reaction is she states "when I take it I'm allergic". reaction taken from previously charted allergy. DEIDRE MARTINEZ DO Dec 18, 2019 16:59
== END 2019-12-18 15:07 | disposition home health service (06) | DRG 92 ==
LOC: M ED 16:57 → EDBD 16:57 → M ED INP 19:07 → ENRESERVTM 20:41 → ENRESERVDT 20:41 → M MSPAV 21:57
PROVIDERS: ADMIT General Practice; ATTEND Internal Medicine
DX: R29.6 Repeated falls (principal); C71.9 Malignant neoplasm of brain, unspecified; I10 Essential (primary) hypertension; R27.0 Ataxia, unspecified; M17.0 Bilateral primary osteoarthritis of knee; M16.0 Bilateral primary osteoarthritis of hip; E78.5 Hyperlipidemia, unspecified; L65.9 Nonscarring hair loss, unspecified; F80.1 Expressive language disorder; F17.210 Nicotine dependence, cigarettes, uncomplicated; Z66 Do not resuscitate; S30.0XXA Contusion of lower back and pelvis, initial encounter; W18.09XA Striking against other object with subsequent fall, initial encounter; Y92.008 Other place in unspecified non-institutional (private) residence as the place of occurrence of the external cause; I25.2 Old myocardial infarction; I25.10 Atherosclerotic heart disease of native coronary artery without angina pectoris; Z95.5 Presence of coronary angioplasty implant and graft; Z79.899 Other long term (current) drug therapy; Z88.8 Allergy status to other drugs, medicaments and biological substances; Z79.82 Long term (current) use of aspirin; Y99.8 Other external cause status

== ENCOUNTER 2020-01-17 19:53 | Emergency (ER) | payer MEDICARE, MEDICAID ==
[~2020-01-17] VITALS: Ht 157.5 cm; Wt 45.5 kg
[2020-01-17] MEDS ORDERED: NS 500 ML IV ONE (20:15)
--- NOTE | 2020-01-17 20:49 | REPVR ---
PROCEDURE INFORMATION: Exam: CT Maxillofacial Without Contrast Exam date and time: 01/17/2020 8:29 PM Age: 59 years old Clinical indication: Injury or trauma; Fall; Initial encounter; Blunt trauma (contusions or hematomas); Forehead; Additional info: Trauma/fall TECHNIQUE: Imaging protocol: Computed tomography images of the face without contrast. Radiation optimization: All CT scans at this facility use at least one of these dose optimization techniques: automated exposure control; mA and/or kV adjustment per patient size (includes targeted exams where dose is matched to clinical indication); or iterative reconstruction. COMPARISON: No relevant prior studies available. FINDINGS: Orbits: No orbital hemorrhage. Bones/joints: No acute fracture. Sinuses: Normal. No air-fluid levels. Vasculature: Vascular calcification. Soft tissues: Right infraorbital/pre maxillary soft tissue swelling. IMPRESSION: No acute facial bone fracture. Electronically signed by: Rudolph Steve On 01/17/2020 20:49:01 PM
--- NOTE | 2020-01-17 20:51 | REPVR ---
PROCEDURE INFORMATION: Exam: CT Cervical Spine Without Contrast Exam date and time: 01/17/2020 8:29 PM Age: 59 years old Clinical indication: Injury or trauma; Fall; Initial encounter; Blunt trauma; Additional info: Altered mental status TECHNIQUE: Imaging protocol: Computed tomography images of the cervical spine without contrast. Radiation optimization: All CT scans at this facility use at least one of these dose optimization techniques: automated exposure control; mA and/or kV adjustment per patient size (includes targeted exams where dose is matched to clinical indication); or iterative reconstruction. COMPARISON: CT Spine,cervical w/o contrast 11/26/2019 7:37 PM FINDINGS: Vertebrae: Mild levoconvex curvature. Non-specific straightening. Vertebral body height and AP alignment is preserved. [id number] degenerative change about the dens. No acute cervical spine fracture. Discs/Spinal canal/Neural foramina: No definite significant central canal stenosis. Soft tissues: Unremarkable. Lungs: Lung apices are normal. Pleural space: No visible pneumothorax. IMPRESSION: No acute cervical spine fracture. Electronically signed by: Rudolph Steve On 01/17/2020 20:51:34 PM
--- NOTE | 2020-01-17 20:53 | REPVR ---
PROCEDURE INFORMATION: Exam: CT Head Without Contrast Exam date and time: 01/17/2020 8:29 PM Age: 59 years old Clinical indication: Injury or trauma; Fall; Initial encounter; Blunt trauma (contusions or hematomas); Additional info: Altered mental status TECHNIQUE: Imaging protocol: Computed tomography of the head without contrast. Radiation optimization: All CT scans at this facility use at least one of these dose optimization techniques: automated exposure control; mA and/or kV adjustment per patient size (includes targeted exams where dose is matched to clinical indication); or iterative reconstruction. COMPARISON: CT Head without contrast 12/12/2019 5:18 PM FINDINGS: Brain: Moderate volume loss. Decreased attenuation of the supratentorial white matter is likely secondary to chronic microvascular ischemia. There is left frontal and right occipital encephalomalacia. No acute intracranial hemorrhage. Ventricles: No hydrocephalus. Bones/joints: Previous left-sided craniotomy. Sinuses: Visualized sinuses are unremarkable. No fluid levels. Mastoid air cells: Visualized mastoid air cells are well aerated. Soft tissues: Unremarkable. IMPRESSION: No acute intracranial abnormality. Electronically signed by: Rudolph Steve On 01/17/2020 20:53:25 PM
[2020-01-17 21:03] LABS: BASO % 0.5 % (0.0-1.0); EOS # 0.1 10^3/uL (0.0-0.5); EOS % 0.9 % (0.0-3.0); HEMATOCRIT 46.1 % (36.0-47.0); HEMOGLOBIN 15.1 g/dl (12.0-15.5); LYMPH # 1.9 10^3/uL (1.5-5.0); LYMPH % 23.5 % (24.0-44.0); MEAN CORPUSCULAR HEMOGLOBIN 29.2 pg (27.0-33.0); MEAN CORPUSCULAR HGB CONC 32.8 g/dl (32.0-36.5); MONO # 0.6 10^3/uL (0.0-0.8); MONO % 6.9 % (0.0-5.0); NEUTROPHILS # 5.5 10^3/uL (1.5-8.5); PLATELET COUNT, AUTOMATED 243 10^3/uL (150-450); RED BLOOD COUNT 5.18 10^6/uL (4.00-5.40); WHITE BLOOD COUNT 8.1 10^3/uL (4.0-10.0)
[2020-01-17 21:31] LABS: OSMOLALITY SERUM 298 MOSM/KG (275-295)
[2020-01-17 21:38] LABS: ALBUMIN 3.8 GM/DL (3.2-5.2); ALT/SGPT 19 U/L (12-78); BILIRUBIN,DIRECT 0.1 MG/DL (0.0-0.2); BILIRUBIN,TOTAL 0.5 MG/DL (0.2-1.0); BLOOD UREA NITROGEN 9 MG/DL (7-18); CALCIUM LEVEL 8.8 MG/DL (8.5-10.1); CARBON DIOXIDE LEVEL 22 MEQ/L (21-32); CHLORIDE LEVEL 113 MEQ/L (98-107); CK-MB VALUE MASS 3.8 NG/ML (<3.6); CPK CREATINE PHOSPHOKINASE 133 U/L (26-192); CREATININE FOR GFR 0.65 MG/DL (0.55-1.30); ETHYL ALCOHOL (ETHANOL) < 0.003 % (0.000-0.010); GLOMERULAR FILTRATION RATE > 60.0 (>51); GLUCOSE, FASTING 97 MG/DL (70-100); MB/CK RELATIVE INDEX 2.86 (< OR =4); POTASSIUM SERUM 3.5 MEQ/L (3.5-5.1); SODIUM LEVEL 141 MEQ/L (136-145); THYROID STIMULATING HORMONE 0.578 uIU/ML (0.358-3.740); TOTAL PROTEIN 7.3 GM/DL (6.4-8.2); TROPONIN I 0.44 NG/ML (< 0.10)
[2020-01-17 23:45] VITALS: BP 177/78
--- NOTE | 2020-01-18 07:29 | ECGEPIP ---
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
--- NOTE | 2020-01-18 10:07 | REP ---
Clinical: Altered mental status . Comparison: 12/12/2019 . Findings: The mediastinum and cardiac silhouette are stable and within normal limits for portable technique. The lung salcido are clear without acute consolidation, effusion, or pneumothorax. Skeletal structures are intact. Impression: No acute cardiopulmonary process appreciated. Electronically Signed by Jose Ross MD 01/18/2020 09:58 A
[2020-01-20 15:07] LABS: TOPIRAMATE LEVEL 21.4 ug/mL (2.0-25.0)
== END 2020-01-18 01:19 | disposition home or self-care (01) ==
LOC: M ED 19:53
DX: R26.89 Other abnormalities of gait and mobility (principal); I25.10 Atherosclerotic heart disease of native coronary artery without angina pectoris; I10 Essential (primary) hypertension; G40.909 Epilepsy, unspecified, not intractable, without status epilepticus; E78.5 Hyperlipidemia, unspecified; F17.210 Nicotine dependence, cigarettes, uncomplicated; Z85.841 Personal history of malignant neoplasm of brain; Z98.890 Other specified postprocedural states; Z95.5 Presence of coronary angioplasty implant and graft; Z79.899 Other long term (current) drug therapy; Z88.8 Allergy status to other drugs, medicaments and biological substances
CPT/HCPCS: 36415; 70450; 70486; 71045; 72125; 80048; 80076; 80299; 81001; 82550; 82553; 83605; 83930; 84443; 84484; 85025; 87040; 93005; 93041; 94760; 96360; 99285; G0480

== ENCOUNTER 2020-03-01 10:12 | Inpatient (IN) | payer MEDICARE, MEDICAID ==
[~2020-03-01] VITALS: Ht 157.5 cm; Wt 43.7 kg
[2020-03-01] MEDS ORDERED: NS 500 ML IV ONE (11:00)
[2020-03-01 11:51] LABS: BASO % 0.5 % (0.0-1.0); EOS # 0.1 10^3/uL (0.0-0.5); EOS % 1.3 % (0.0-3.0); HEMATOCRIT 41.6 % (36.0-47.0); HEMOGLOBIN 13.6 g/dl (12.0-15.5); LYMPH # 1.5 10^3/uL (1.5-5.0); LYMPH % 27.9 % (24.0-44.0); MEAN CORPUSCULAR HEMOGLOBIN 29.6 pg (27.0-33.0); MEAN CORPUSCULAR HGB CONC 32.7 g/dl (32.0-36.5); MEAN CORPUSCULAR VOLUME 90.4 fl (80.0-96.0); MONO # 0.4 10^3/uL (0.0-0.8); MONO % 7.3 % (0.0-5.0); NEUTROPHILS # 3.4 10^3/uL (1.5-8.5); NEUTROPHILS % 62.5 % (36.0-66.0); PLATELET COUNT, AUTOMATED 206 10^3/uL (150-450); WHITE BLOOD COUNT 5.5 10^3/uL (4.0-10.0)
[2020-03-01 12:01] LABS: INR 1.17; PROTHROMBIN TIME 14.6 SECONDS (11.8-14.0)
[2020-03-01 12:02] LABS: PARTIAL THROMBOPLASTIN TIME 25.5 SECONDS (25.0-38.4)
[2020-03-01 12:18] LABS: ALBUMIN 3.5 GM/DL (3.2-5.2); BILIRUBIN,DIRECT 0.1 MG/DL (0.0-0.2); BILIRUBIN,TOTAL 0.3 MG/DL (0.2-1.0); TOTAL PROTEIN 6.7 GM/DL (6.4-8.2)
--- NOTE | 2020-03-01 14:26 | REP ---
CT BRAIN: INDICATION: Mental status change, brain tumor, head trauma. COMPARISON: 01/17/2020 TECHNIQUE: Unenhanced axial CT images of the brain were obtained from the skull base to the vertex with coronal reconstructions provided. FINDINGS: There is no acute intracranial hemorrhage, acute cortical infarction, mass-effect, or hydrocephalus. There is ex vacuole dilatation of the left lateral ventricle. There is hypo attentuation within the left frontal lobe most consistent with encephalomalacia/gliosis from the operative sequelae, however, subacute infarction is not excluded. There is a chronic appearing right parieto-occipital small infarction. IMPRESSION: No acute intracranial hemorrhage. Postoperative sequelae on the left as described with possible underlying subacute to chronic left MCA/frontal lobe infarction. Chronic right parieto-occipital infarction. Volume loss and sequelae of chronic microangiopathic ischemic disease. Unreviewed
[2020-03-01] MEDS ORDERED: AUGMENTIN 875 MG TAB PO ONE (14:45)
[2020-03-01] MEDS ORDERED: POTASSIUM CHLORIDE 10 MEQ SR TABLET PO ONE (14:45)
[2020-03-01 14:54] LABS: MAGNESIUM LEVEL 2.2 MG/DL (1.8-2.4)
--- NOTE | 2020-03-01 15:39 | REP ---
REASON: Pain in the neck. COMPARISON: 01/17/2020 Vertebral body height and alignment is unchanged again seen to be within normal limits. There is no evidence of acute cervical spine fracture. There is no evidence of abnormal paraspinal soft tissue swelling. The facet joints are again seen to be well aligned bilaterally. The disc spaces are symmetric and well maintained status quo. IMPRESSION: No acute abnormality. Electronically Signed by Austyn Panda DO 03/01/2020 05:29 P
--- NOTE | 2020-03-01 15:42 | REP ---
REASON: Trauma. COMPARISON: 01/17/2020 There is a mildly depressed fracture of the anterior and anterolateral peguero of the left maxillary sinus. There is a left maxillary sinus air fluid level. There is left-sided facial soft tissue swelling. The orbits are intact with intact ocular globes and no abnormality seen involving the conal or extraconal adipose tissue. The gaze is conjugant. IMPRESSION: Left maxillary sinus fracture with likely air-blood level from acute hemorrhage within the left maxillary sinus. There are no additional acute fractures. There are some chronic changes involving the paranasal sinuses but these are stable compared to the 01/17/2020. Electronically Signed by Austyn Panda DO 03/01/2020 05:29 P
[2020-03-01] MEDS ORDERED: LISINOPRIL *2.5 MG* TAB PO ONE (16:30)
[2020-03-01] MEDS ORDERED: amLODIPine 10 MG TAB PO ONE ×2 (16:30→17:15)
[2020-03-01 18:15] VITALS: BP 150/83
[2020-03-01] MEDS: traZODone 100 MG TAB PO SCH (21:09)
[2020-03-01] MEDS: TOPIRAMATE (TopAMAX) 100 MG TAB PO SCH (21:09)
[2020-03-01] MEDS: AUGMENTIN 500 MG TAB PO SCH (21:09)
[2020-03-01] MEDS: LACOSAMIDE 50 MG TAB (VIMPAT) PO SCH (21:09)
[2020-03-01] MEDS: ASPIRIN 81 MG ENTERIC TAB PO SCH (21:09)
[2020-03-01 22:00] VITALS: BP 125/68
--- NOTE | 2020-03-01 23:23 | REP ---
CHEST, SINGLE VIEW: There is no evidence of acute infiltrate. No pleural effusion is seen. The heart is normal in size. The mediastinal silhouette is unremarkable. The visualized osseous structures are intact. IMPRESSION: No acute pulmonary disease. Electronically Signed by Abhilash Jones MD 03/03/2020 09:11 A
[2020-03-02 04:23] VITALS: BP 122/66
[2020-03-02 07:14] LABS: BASO % 0.7 % (0.0-1.0); EOS # 0.1 10^3/uL (0.0-0.5); EOS % 1.9 % (0.0-3.0); HEMATOCRIT 42.2 % (36.0-47.0); HEMOGLOBIN 14.1 g/dl (12.0-15.5); LYMPH % 33.4 % (24.0-44.0); MEAN CORPUSCULAR HGB CONC 33.4 g/dl (32.0-36.5); MEAN CORPUSCULAR VOLUME 89.8 fl (80.0-96.0); MONO # 0.5 10^3/uL (0.0-0.8); MONO % 8.6 % (0.0-5.0); NEUTROPHILS # 3.2 10^3/uL (1.5-8.5); NEUTROPHILS % 54.7 % (36.0-66.0); PLATELET COUNT, AUTOMATED 205 10^3/uL (150-450); WHITE BLOOD COUNT 5.8 10^3/uL (4.0-10.0)
--- NOTE | 2020-03-02 07:28 | HPE ---
DATE OF ADMISSION: 03/01/2020 CHIEF COMPLAINT: Fall, nasal fracture. HISTORY OF PRESENT ILLNESS: This is a 59-year-old female, DO NOT RESUSCITATE, DO NOT INTUBATE, all forms signed, with history of astroglioma with recurrence and resection on chronic anti-seizure medication who lives at home, coronary artery disease (CAD), myocardial infarction (VA), and hypercholesterolemia, brought in after falling at home and Life Alert bracelet was activated. The patient has expressive aphasia and has difficulty giving history. She said that she fell on her face and was able to get up and sit. When she was brought in, she denies dizziness, lightheadedness, chest pain, pressure or tightness, changes in vision, diplopia, seizure activity, urine or bowel incontinence. In the emergency room (ER), the patient was evaluated with normal CBC, metabolic panel and liver function tests, except for a potassium of 2.7, which was repleted. Imaging maxillofacial showed left maxillary sinus fracture from acute hemorrhage within the left maxillary sinus, no additional fractures. The patient was given Augmentin and admitted for acute rehabilitation unit (ARU) evaluation. CT of head and CT of cervical spine were all negative for any other acute injuries. The patient has a chronic left MCA frontal lobe infarct, chronic right parietal occipital infarct, volume loss, and chronic microangiopathic ischemic disease with no acute intracranial hemorrhage. PAST MEDICAL HISTORY: 1. Astroglioma with recurrence on chronic anti-seizure medications. 2. Coronary artery disease (CAD), status post myocardial infarction (VA), with stent in 1998, 3. Hyperlipidemia. 4. Osteoarthritis of the hip and knees. 5. Hypertension. PAST SURGICAL HISTORY: 1. Astroglioma resected twice, September 2014. Follows with Dr. Ko, neurosurgeon at [facility] in [place], last seen September 2019. 2. Stent placement after VA in 1998. ALLERGIES: - PROCHLORPERAZINE HOME MEDICATIONS: - aspirin 81 daily - atenolol 100 mg daily - hydrocodone one tablet every 6 as needed - Vimpat 200 twice a day - nitroglycerin as needed - Topamax 200 twice a day - trazodone 100 mg at bedtime SOCIAL HISTORY: The patient is DO NOT RESUSCITATE, DO NOT INTUBATE. She lives alone with a Life Alert system, wears a necklace. Previously smoked for 10 years. Disabled due to astroglioma with recurrence. Health care proxy is Kinza [place], niece, phone number [phone]. FAMILY HISTORY: Father with lung cancer in his 60s. Mother in her 90s with coronary artery disease. Older sister, Kierra, of lung cancer. REVIEW OF SYSTEMS: Per history of present illness (HPI), could not be fully obtained due to expressive aphasia. PHYSICAL EXAMINATION: Temperature 97.2, pulse 66, respiratory rate 18, blood pressure 150/83, 97% on room air. Generally, the patient has expressive aphasia. She appears older than her stated age. She has significant ecchymosis with different shades of bruising bilaterally underneath the eye lids. She has an old scar on the right forehead in the temporal area. She has alopecia from previous astroglioma surgery at the left frontal parietal area. She appears emaciated with bitemporal wasting. The patient is very slow to speak. Face is symmetric. The tongue is midline. Dry mucous membranes and chapped lips. No jugular venous distention (JVD) or thyromegaly. Pupils are round and reactive. Extraocular muscles are intact. The patient has no respiratory distress. Lungs are clear to auscultation. No wheezing, rales or rhonchi. Heart: S1, S2. Sinus rhythm. Abdomen soft, nontender, nondistended. Positive bowel sounds x4 quadrants. Extremities: No cyanosis, clubbing or any pitting edema. The patient has some bleeding on the left index finger with a Band-Aid. LABORATORY DATA: White count 5.5, hemoglobin 13, hematocrit 41, platelet count 206. Sodium 144, potassium 2.7, chloride 111, bicarbonate 18, BUN 13, creatinine 0.7, glucose 105. Ionized calcium 4.9. Metabolic panel with magnesium 2.2, total bilirubin 0.3, direct bilirubin 0.1, AST 19, ALT 15, alkaline phosphatase 78, total protein 6.7, albumin 3.5, lipase 86, lactic acid 1. INR of 1.17. CT of the head: Chronic changes. No acute intracranial hemorrhage. Postop sequelae on the left with underlying subacute to chronic left MCA frontal lobe infarction. Chronic right parietal occipital infarct. Volume loss. Sequelae of chronic microangiopathic ischemic disease. Cervical spine CT with no acute fracture. Maxillofacial CT with left maxillary sinus fracture with likely air blood levels from acute hemorrhage within the left maxillary sinus. ASSESSMENT AND PLAN: This is a 59-year-old, DO NOT RESUSCITATE, DO NOT INTUBATE, female with history of astroglioma status post resection times two with recurrence, coronary artery disease, myocardial infarction, stent placement in 1998, on seizure prophylaxis by Dr. Carballo, who sees a neurosurgeon, Dr. Ko in [place], who presents with recurrent falls in the past, insists on living alone with Life Alert system with health care proxy Kinza Montana being supportive of the patient's wishes. She continues to have expressive aphasia. IMPRESSION: 1. Recurrent falls secondary to recurrent astroglioma with resection times two with gait ataxia. The patient has a new right maxillary sinus fracture, on antibiotics, and fall precautions, to acute rehabilitation unit (ARU), and physical therapy (PT) and occupational therapy (OT) evaluation. 2. Bilateral eye bruising. No signs of global injury. The patient currently has good eye sight. Extraocular muscles are intact. No change in vision. 3. Right maxillary sinus fracture. On Augmentin. Fall precautions. 4 . Astroglioma with recurrence times two resections causing gait abnormality. Follows with Dr. Ko, Neurosurgery at [facility]. On chronic seizure prophylaxis, managed by Dr. Carballo. CT of the head had no acute intracranial abnormality. She will be continued on her home dose of aspirin. Monitor neurologically every 4 hours. Continue on Vimpat 200 twice a day. 5. Hypertension. Continue atenolol 100 daily. She was given lisinopril due to uncontrolled blood pressure. 6. History of coronary artery disease, myocardial infarction. On aspirin, atenolol and lisinopril. 7. Hypertension, uncontrolled secondary to pain. The patient was given acetaminophen as needed due to recurrent falls. Avoiding narcotics. Currently pain free. She is continued on her home dose of atenolol, lisinopril, but was given Norvasc earlier due to uncontrolled blood pressure. 8. Chronic hip arthritis. On Tylenol. 9. Hyperlipidemia. Stable. 10. Code status is DO NOT RESUSCITATE, DO NOT INTUBATE. DISPOSITION: The patient is refusing long term placement despite recurrent falls at home. [facility]
[2020-03-02 07:48] LABS: BLOOD UREA NITROGEN 11 MG/DL (7-18); CALCIUM LEVEL 8.5 MG/DL (8.5-10.1); CARBON DIOXIDE LEVEL 21 MEQ/L (21-32); CHLORIDE LEVEL 117 MEQ/L (98-107); CREATININE FOR GFR 0.58 MG/DL (0.55-1.30); GLOMERULAR FILTRATION RATE > 60.0 (>51); GLUCOSE, FASTING 94 MG/DL (70-100); POTASSIUM SERUM 3.6 MEQ/L (3.5-5.1); SODIUM LEVEL 144 MEQ/L (136-145)
[2020-03-02] MEDS: atenoloL 50 MG TAB PO SCH (09:00)
[2020-03-02] MEDS: TOPIRAMATE (TopAMAX) 100 MG TAB PO SCH ×2 (09:00→21:45)
[2020-03-02] MEDS: AUGMENTIN 500 MG TAB PO SCH ×2 (09:01→21:45)
[2020-03-02] MEDS: LACOSAMIDE 50 MG TAB (VIMPAT) PO SCH ×2 (09:03→21:45)
--- NOTE | 2020-03-02 11:12 | IPNPDOC ---
Text Note Date of Service The patient was seen on 03/02/20. NOTE Subjective: Patient seen and examined at bedside. No acute overnight events reported. Patient has no new medical complaints. Poor historian, pleasantly confused. Objective: Vitals: See below General: NAD, lying comfortably in bed HEENT: significant ecchymosis with different shades of bruising bilaterally underneath the eye lids. She has an old scar on the right forehead in the temporal area. She has alopecia from previous astroglioma surgery at the left frontal parietal area. bitemporal wasting. Face is symmetric. The tongue is midline. Dry mucous membranes and chapped lips. No jugular venous distention (JVD) or thyromegaly. 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 Carballo, who sees a neurosurgeon, Dr. Ko in [place], who presents with recurrent falls in the past, insists on living alone with Life Alert system with health care proxy Kinza Montana being supportive of the patient's wishes. # Recurrent falls secondary to recurrent astroglioma with resection times two with gait ataxia. The patient has a new right maxillary sinus fracture, on antibiotics, and fall precautions, to acute rehabilitation unit (ARU), and physical therapy (PT) and occupational therapy (OT) evaluation. #Bilateral eye bruising. No signs of global injury. The patient currently has good eye sight. Extraocular muscles are intact. No change in vision. # Right maxillary sinus fracture. On Augmentin. Fall precautions. #Astroglioma with recurrence times two resections causing gait abnormality. Follows with Dr. Ko, Neurosurgery at [facility]. On chronic seizure prophylaxis, managed by Dr. Carballo. CT of the head had no acute intracranial abnormality. She will be continued on her home dose of aspirin. Monitor neurologically every 4 hours. Continue on Vimpat 200 twice a day. # Hypertension. Continue atenolol 100 daily with hold parameters. She was g iven lisinopril due to uncontrolled blood pressure. #History of coronary artery disease, myocardial infarction. On aspirin, atenolol and lisinopril. # Chronic hip arthritis. On Tylenol. #Hyperlipidemia. Stable. #Code status is DO NOT RESUSCITATE, DO NOT INTUBATE. DISPOSITION: Pending placement. VS,Fishbone, I+O VS, Fishbone, I+O Laboratory Tests 03/01/20 11:31 03/02/20 06:39 Vital Signs Date Time Temp Pulse Resp B/P (MAP) Pulse Ox O2 Delivery O2 Flow Rate FiO2 03/02/20 09:00 82 114/66 03/02/20 04:23 96.9 18 93 Room Air I&O- Last 24 Hours up to 6 AM 03/02/20 06:00 Intake Total 650 ml Output Total 0 ml Balance 650 ml ERIKA ANDRES MD Mar 02, 2020 11:12
[2020-03-02] MEDS: ACETAMINOPHEN TAB 650MG DOSE (2X325MG) PO PRN ×2 (13:21→18:27)
[2020-03-02 14:00] VITALS: BP 116/67
[2020-03-02] MEDS: traZODone 100 MG TAB PO SCH (21:45)
[2020-03-02] MEDS: ASPIRIN 81 MG ENTERIC TAB PO SCH (21:45)
[2020-03-02 22:00] VITALS: BP 131/70
[2020-03-03 06:00] VITALS: BP 129/70
[2020-03-03] MEDS: atenoloL 50 MG TAB PO SCH (09:00)
[2020-03-03] MEDS: TOPIRAMATE (TopAMAX) 100 MG TAB PO SCH ×2 (09:02→20:34)
[2020-03-03] MEDS: AUGMENTIN 500 MG TAB PO SCH ×2 (09:03→20:34)
[2020-03-03] MEDS: ACETAMINOPHEN TAB 650MG DOSE (2X325MG) PO PRN (09:03)
[2020-03-03] MEDS: LACOSAMIDE 50 MG TAB (VIMPAT) PO SCH ×2 (09:03→20:34)
--- NOTE | 2020-03-03 13:30 | IPNPDOC ---
Text Note Date of Service The patient was seen on 03/03/20. NOTE Subjective: Patient seen and examined at bedside. No acute overnight events reported. Patient has no new medical complaints. Poor historian, pleasantly confused. Objective: Vitals: See below General: NAD, lying comfortably in bed HEENT: significant ecchymosis with different shades of bruising bilaterally underneath the eye lids. She has an old scar on the right forehead in the temporal area. She has alopecia from previous astroglioma surgery at the left frontal parietal area. bitemporal wasting. Face is symmetric. The tongue is midline. Dry mucous membranes and chapped lips. No jugular venous distention (JVD) or thyromegaly. 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 Carballo, who sees a neurosurgeon, Dr. Ko in [place], who presents with recurrent falls in the past, insists on living alone with Life Alert system with health care proxy [employer] [place] being supportive of the patient's wishes. # Recurrent falls - in the setting of recurrent astroglioma with resection times two with gait ataxia - new right maxillary sinus fracture - fall precautions/PT/OT #Bilateral eye bruising. No signs of global injury. The patient currently has good eye sight. Extraocular muscles are intact. Reports no change in vision. # Right maxillary sinus fracture. On Augmentin. Fall precautions. #Astroglioma with recurrence times two resections causing gait abnormality. Follows with Dr. Ko, Neurosurgery at [facility]. On chronic seizure prophylaxis, managed by Dr. Carballo. CT of the head had no acute intracranial abnormality. She will be continued on her home dose of aspirin. Continue on Vimpat 200 twice a day. # Hypertension. Continue atenolol 100 daily with hold parameters. #History of coronary artery disease, myocardial infarction. On aspirin, atenolol and lisinopril. # Chronic hip arthritis. On Tylenol. #Hyperlipidemia. Stable. #Code status is DO NOT RESUSCITATE, DO NOT INTUBATE. DISPOSITION: Pending placement. VS,Aliya, I+O VS, Fishbone, I+O Vital Signs Date Time Temp Pulse Resp B/P (MAP) Pulse Ox O2 Delivery O2 Flow Rate FiO2 03/03/20 09:00 73 121/79 03/03/20 06:00 97.9 17 97 Room Air I&O- Last 24 Hours up to 6 AM 03/03/20 06:00 Intake Total 1000 ml Output Total 150 ml Balance 850 ml ERIKA ANDRES MD Mar 03, 2020 13:30
[2020-03-03 14:00] VITALS: BP 126/24
[2020-03-03] MEDS: ASPIRIN 81 MG ENTERIC TAB PO SCH (20:34)
[2020-03-03] MEDS: traZODone 100 MG TAB PO SCH (20:34)
[2020-03-03] MEDS: NORCO, ANEXSIA 5/325MG TABLET (HYDROcodone/ACETAMINOPHEN) PO PRN (20:35)
[2020-03-03 22:00] VITALS: BP 146/79
[2020-03-04 06:00] VITALS: BP 134/73
[2020-03-04] MEDS: AUGMENTIN 500 MG TAB PO SCH ×2 (08:37→21:06)
[2020-03-04] MEDS: LACOSAMIDE 50 MG TAB (VIMPAT) PO SCH ×2 (08:39→21:06)
[2020-03-04] MEDS: TOPIRAMATE (TopAMAX) 100 MG TAB PO SCH ×2 (08:39→21:06)
[2020-03-04] MEDS: atenoloL 50 MG TAB PO SCH (08:39)
--- NOTE | 2020-03-04 10:41 | IPNPDOC ---
Text Note Date of Service The patient was seen on 03/04/20. NOTE Subjective: Patient seen and examined at bedside. No acute overnight events reported. Patient has no new medical complaints. Poor historian, pleasantly confused. Objective: Vitals: See below General: NAD, sitting comfortably in chair HEENT: significant ecchymosis with different shades of bruising bilaterally underneath the eye lids. She has an old scar on the right forehead in the temporal area. She has alopecia from previous astroglioma surgery at the left frontal parietal area. bitemporal wasting. Face is symmetric. The tongue is midline. 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 Carballo, who sees a neurosurgeon, Dr. Ko in [place], who presents with recurrent falls in the past, insists on living alone with Life Alert system with health care proxy [employer] [place] being supportive of the patient's wishes. # Recurrent falls - in the setting of recurrent astroglioma with resection times two with gait ataxia - new right maxillary sinus fracture - fall precautions/PT/OT #Bilateral eye bruising. No signs of global injury. The patient currently has good eye sight. Extraocular muscles are intact. Reports no change in vision. # Right maxillary sinus fracture. On Augmentin. Fall precautions. #Astroglioma with recurrence times two resections causing gait abnormality. Follows with Dr. Ko, Neurosurgery at [facility]. On chronic seizure prophylaxis, managed by Dr. Carballo. CT of the head had no acute intracranial abnormality. She will be continued on her home dose of aspirin. Continue on Vimpat 200 twice a day. # Hypertension. Continue atenolol 100 daily with hold parameters. #History of coronary artery disease, myocardial infarction. On aspirin, atenolol and lisinopril. # Chronic hip arthritis. On Tylenol. #Hyperlipidemia. Stable. #Code status is DO NOT RESUSCITATE, DO NOT INTUBATE. DISPOSITION: Pending placement. VS,Fishbone, I+O VS, Fishbone, I+O Vital Signs Date Time Temp Pulse Resp B/P (MAP) Pulse Ox O2 Delivery O2 Flow Rate FiO2 03/04/20 08:39 69 135/71 03/04/20 06:00 98.5 18 97 Room Air I&O- Last 24 Hours up to 6 AM 03/04/20 06:00 Intake Total 1445 ml Output Total 0 ml Balance 1445 ml ERIKA ANDRES MD Mar 04, 2020 10:41
[2020-03-04 14:00] VITALS: BP 136/71
[2020-03-04 19:54] VITALS: BP 138/80
[2020-03-04] MEDS: ASPIRIN 81 MG ENTERIC TAB PO SCH (21:06)
[2020-03-04] MEDS: traZODone 100 MG TAB PO SCH (21:06)
[2020-03-04] MEDS: NORCO, ANEXSIA 5/325MG TABLET (HYDROcodone/ACETAMINOPHEN) PO PRN (21:06)
[2020-03-05 06:29] VITALS: BP 133/64
[2020-03-05] MEDS: atenoloL 50 MG TAB PO SCH (08:13)
[2020-03-05] MEDS: TOPIRAMATE (TopAMAX) 100 MG TAB PO SCH ×2 (08:13→20:28)
[2020-03-05] MEDS: AUGMENTIN 500 MG TAB PO SCH ×2 (08:13→20:29)
[2020-03-05] MEDS: LACOSAMIDE 50 MG TAB (VIMPAT) PO SCH ×2 (08:13→20:28)
--- NOTE | 2020-03-05 09:23 | IPNPDOC ---
Text Note Date of Service The patient was seen on 03/05/20. NOTE Subjective: Patient seen and examined at bedside. No acute overnight events reported. Patient has no new medical complaints. Poor historian, pleasantly confused. Objective: Vitals: See below General: NAD, sitting comfortably in chair HEENT: significant ecchymosis with different shades of bruising bilaterally underneath the eye lids. She has an old scar on the right forehead in the temporal area. She has alopecia from previous astroglioma surgery at the left frontal parietal area. bitemporal wasting. Face is symmetric. The tongue is midline. 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 Carballo, who sees a neurosurgeon, Dr. Ko in [place], who presents with recurrent falls in the past, insists on living alone with Life Alert system with health care proxy [employer] [place] being supportive of the patient's wishes. # Recurrent falls - in the setting of recurrent astroglioma with resection times two with gait ataxia - new right maxillary sinus fracture - fall precautions/PT/OT #Bilateral eye bruising. No signs of global injury. The patient currently has good eye sight. Extraocular muscles are intact. Reports no change in vision. # Right maxillary sinus fracture - Augmentin day #3 - Fall precautions. #Astroglioma with recurrence times two resections causing gait abnormality. Follows with Dr. Ko, Neurosurgery at [facility]. On chronic seizure prophylaxis, managed by Dr. Carballo. CT of the head had no acute intracranial abnormality. She will be continued on her home dose of aspirin. Continue on Vimpat 200 twice a day. #HTN - continue atenolol 100 daily with hold parameters. #History of coronary artery disease, myocardial infarction. On aspirin, atenolol and lisinopril. # Chronic hip arthritis. On Tylenol. #DLP - as per medical records - appears to be controlled with diet #Code status is DO NOT RESUSCITATE, DO NOT INTUBATE. DISPOSITION: Pending placement. VS,Fishbone, I+O VS, Fishbone, I+O Vital Signs Date Time Temp Pulse Resp B/P (MAP) Pulse Ox O2 Delivery O2 Flow Rate FiO2 03/05/20 08:13 55 133/64 03/05/20 06:29 98.2 17 97 Room Air I&O- Last 24 Hours up to 6 AM 03/05/20 05:59 Intake Total 2130 ml Output Total 0 ml Balance 2130 ml ERIKA ANDRES MD Mar 05, 2020 09:23
[2020-03-05 14:30] VITALS: BP 156/72
[2020-03-05] MEDS: traZODone 100 MG TAB PO SCH (20:28)
[2020-03-05] MEDS: ASPIRIN 81 MG ENTERIC TAB PO SCH (20:29)
[2020-03-05 22:00] VITALS: BP 154/74
[2020-03-06 06:00] VITALS: BP 158/72
[2020-03-06] MEDS: atenoloL 50 MG TAB PO SCH (08:42)
[2020-03-06] MEDS: LACOSAMIDE 50 MG TAB (VIMPAT) PO SCH ×2 (08:42→21:51)
[2020-03-06] MEDS: AUGMENTIN 500 MG TAB PO SCH ×2 (08:42→22:50)
[2020-03-06] MEDS: TOPIRAMATE (TopAMAX) 100 MG TAB PO SCH ×2 (08:42→21:51)
[2020-03-06 14:00] VITALS: BP 124/78
[2020-03-06] MEDS ORDERED: SENOKOT S TAB PO PRN (21:15)
[2020-03-06] MEDS: ASPIRIN 81 MG ENTERIC TAB PO SCH (21:51)
[2020-03-06] MEDS: MIRALAX *UNIT DOSE* 17GM PACKET PO SCH (21:51)
[2020-03-06] MEDS: traZODone 100 MG TAB PO SCH (21:51)
[2020-03-06 22:00] VITALS: BP 148/78
[2020-03-07 06:00] VITALS: BP 135/71
[2020-03-07 06:27] LABS: HEMATOCRIT 44.2 % (36.0-47.0); HEMOGLOBIN 14.6 g/dl (12.0-15.5); MEAN CORPUSCULAR HEMOGLOBIN 29.7 pg (27.0-33.0); PLATELET COUNT, AUTOMATED 214 10^3/uL (150-450); RED BLOOD COUNT 4.91 10^6/uL (4.00-5.40); WHITE BLOOD COUNT 5.6 10^3/uL (4.0-10.0)
[2020-03-07 06:46] LABS: BLOOD UREA NITROGEN 10 MG/DL (7-18); CALCIUM LEVEL 8.7 MG/DL (8.5-10.1); CARBON DIOXIDE LEVEL 21 MEQ/L (21-32); CHLORIDE LEVEL 113 MEQ/L (98-107); CREATININE FOR GFR 0.56 MG/DL (0.55-1.30); GLOMERULAR FILTRATION RATE > 60.0 (>51); GLUCOSE, FASTING 94 MG/DL (70-100); POTASSIUM SERUM 3.8 MEQ/L (3.5-5.1); SODIUM LEVEL 142 MEQ/L (136-145)
[2020-03-07] MEDS: TOPIRAMATE (TopAMAX) 100 MG TAB PO SCH ×2 (08:37→20:53)
[2020-03-07] MEDS: LACOSAMIDE 50 MG TAB (VIMPAT) PO SCH ×2 (08:38→20:54)
[2020-03-07] MEDS: AUGMENTIN 500 MG TAB PO SCH ×2 (08:39→20:53)
[2020-03-07] MEDS: atenoloL 50 MG TAB PO SCH (08:41)
[2020-03-07 14:00] VITALS: BP 137/81
[2020-03-07] MEDS: ASPIRIN 81 MG ENTERIC TAB PO SCH (20:53)
[2020-03-07] MEDS: traZODone 100 MG TAB PO SCH (20:53)
[2020-03-07] MEDS: MIRALAX *UNIT DOSE* 17GM PACKET PO SCH (20:53)
[2020-03-08 06:00] VITALS: BP 126/64
[2020-03-08] MEDS: TOPIRAMATE (TopAMAX) 100 MG TAB PO SCH (08:28)
[2020-03-08] MEDS: LACOSAMIDE 50 MG TAB (VIMPAT) PO SCH (08:28)
[2020-03-08] MEDS: AUGMENTIN 500 MG TAB PO SCH (08:28)
[2020-03-08 08:29] VITALS: BP 95/60
[2020-03-08] MEDS: atenoloL 50 MG TAB PO SCH (08:29)
[2020-03-08] MEDS ORDERED: AMOX500T2 PO (12:25)
--- NOTE | 2020-03-08 12:28 | DS.PDOC ---
Discharge Summary General Date of Admission Mar 01, 2020 at 18:00 Date of Discharge 03/08/20 Discharge Summary PROCEDURES PERFORMED DURING STAY: [None]. ADMITTING DIAGNOSES: 1. Fall, nasal fracture 2. Astroglioma with recurrence on chronic anti-seizure medications 3. HLD 4. HTN DISCHARGE DIAGNOSES: 1. Fall, nasal fracture 2. Astroglioma with recurrence on chronic anti-seizure medications 3. HLD 4. HTN COMPLICATIONS/CHIEF COMPLAINT: Facial Fracture. HISTORY OF PRESENT ILLNESS: "This is a 59-year-old female, DO NOT RESUSCITATE, DO NOT INTUBATE, all forms signed, with history of astroglioma with recurrence and resection on chronic anti-seizure medication who lives at home, coronary artery disease (CAD), myocardial infarction (MA), and hypercholesterolemia, brought in after falling a t home and Life Alert bracelet was activated. The patient has expressive aphasia and has difficulty giving history. She said that she fell on her face and was able to get up and sit. When she was brought in, she denies dizziness, lightheadedness, chest pain, pressure or tightness, changes in vision, diplopia, seizure activity, urine or bowel incontinence. In the emergency room (ER), the patient was evaluated with normal CBC, metabolic panel and liver function tests, except for a potassium of 2.7, which was repleted. Imaging maxillofacial showed left maxillary sinus fracture from acute hemorrhage within the left maxillary sinus, no additional fractures. The patient was given Augmentin and admitted for acute rehabilitation unit (ARU) evaluation. CT of head and CT of cervical spine were all negative for any other acute injuries. The patient has a chronic left MCA frontal lobe infarct, chronic right parietal occipital infarct, volume loss, and chronic microangiopathic ischemic disease with no acute intracranial hemorrhage." HOSPITAL COURSE: Patient continue to receive PT and was started on augmentin post sinus fracture and has been doing well. CT of head shows no significant changes on this admission and she is maintained on her home medications. Patient is to be discharged to [facility]. She is to complete her Augmentin course today with last dose prescribed for this evening at Rehab. f/u PCP, neurology and neurosurgery post discharge. DISCHARGE MEDICATIONS: Please see below. ALLERGIES: Please see below. PHYSICAL EXAMINATION ON DISCHARGE: VITAL SIGNS: Please see below. General: No acute distress, Alert, alopecia significant on the L. side of head, speech stuttering Eyes: Normal sclera, EOMI, RAEANN HENT: L. sided alopecia. resolving bruises around both eyes. Cardiovascular: Normal rate Pulmonary: Clear to auscultation b/l, no wheezing GI: Soft, nontender, nondistended Skin: resolving ecchymosis around b/l eyes LABORATORY DATA: Please see below. IMAGING: CT of the head: Chronic changes. No acute intracranial hemorrhage. Postop sequelae on the left with underlying subacute to chronic left MCA frontal lobe infarction. Chronic right parietal occipital infarct. Volume loss. Sequelae of chronic microangiopathic ischemic disease. Cervical spine CT with no acute fracture. Maxillofacial CT with left maxillary sinus fracture with likely air blood levels from acute hemorrhage within the left maxillary sinus. ACTIVITY: [As tolerated]. DIET: 2G sodium diet DISCHARGE PLAN: continue with Rehab f/u PCP, neurology and neurosurgery DISPOSITION: [facility]. DISCHARGE INSTRUCTIONS: continue with Rehab f/u PCP, neurology and neurosurgery ITEMS TO FOLLOWUP ON ON OUTPATIENT: none DISCHARGE CONDITION: [Stable]. TIME SPENT ON DISCHARGE: 35 minutes. Vital Signs/I&Os Vital Signs Date Time Temp Pulse Resp B/P (MAP) Pulse Ox O2 Delivery O2 Flow Rate FiO2 03/08/20 08:29 69 95/60 03/08/20 06:00 97.9 14 97 Room Air I&O- Last 24 Hours up to 6 AM 03/08/20 06:00 Intake Total 860 ml Output Total 300 ml Balance 560 ml Laboratory Data Labs 24H Laboratory Tests 2 03/07/20 14:20: Coronavirus (COVID-19)(PCR) NEGATIVE Microbiology Microbiology 03/01/20 Blood Culture - Final, Complete NO GROWTH AFTER 5 DAYS 03/01/20 Blood Culture - Final, Complete NO GROWTH AFTER 5 DAYS Discharge Medications Scheduled Amoxicillin/Potassium Clav (Amox-Clav 500-125 mg Tablet) 1 Each Tablet, 500 MG PO QPM Aspirin (Aspirin EC) 81 Mg Tab, 81 MG PO QHS, (Reported) Atenolol (Atenolol) 100 Mg Tab, 100 MG PO DAILY, (Reported) Lacosamide (Vimpat) 200 Mg Tab, 200 MG PO BID, (Reported) Topiramate (Topiramate) 200 Mg Tablet, 200 MG PO BID, (Reported) Trazodone HCl (Trazodone HCl) 100 Mg Tablet, 100 MG PO QHS, (Reported) Scheduled PRN Hydrocodone/Acetaminophen (Hydrocodone-Acetamin 5-325 mg) 1 Each Tablet, 1 TAB PO Q6H PRN for PAIN, (Reported) Nitroglycerin (Nitrostat) 0.4 Mg Subl, 0.4 MG SL NITRO PRN for CHEST PAIN, (Reported) Allergies Coded Allergies: prochlorperazine (Verified Adverse Reaction, Intermediate, anxiety/dystonic reaction, 11/22/19) patient unable to answer 01/13/19. when asked what reaction is she states "when I take it I'm allergic". reaction taken from previously charted allergy. CHEPE MORENO MD Mar 08, 2020 12:28
== END 2020-03-08 15:31 | DRG 92 ==
LOC: M ED 10:12 → EDBD 10:12 → UNDOADMIN 15:04 → M MS5PR 15:04 → ENRESERV 15:30 → M MS5PR 18:00 → M ED 18:01
PROVIDERS: ADMIT General Practice; ATTEND Student in an Organized Health Care Education/Training Program
DX: R29.6 Repeated falls (principal); C71.9 Malignant neoplasm of brain, unspecified; S02.40DA Maxillary fracture, left side, initial encounter for closed fracture; I25.10 Atherosclerotic heart disease of native coronary artery without angina pectoris; E78.5 Hyperlipidemia, unspecified; M16.0 Bilateral primary osteoarthritis of hip; M17.0 Bilateral primary osteoarthritis of knee; S00.83XA Contusion of other part of head, initial encounter; R26.0 Ataxic gait; I10 Essential (primary) hypertension; W18.30XA Fall on same level, unspecified, initial encounter; F80.1 Expressive language disorder; L65.9 Nonscarring hair loss, unspecified; Y92.009 Unspecified place in unspecified non-institutional (private) residence as the place of occurrence of the external cause; Y99.8 Other external cause status; Y93.9 Activity, unspecified; Z66 Do not resuscitate; Z95.5 Presence of coronary angioplasty implant and graft; Z79.82 Long term (current) use of aspirin; Z79.891 Long term (current) use of opiate analgesic; Z79.899 Other long term (current) drug therapy; Z87.891 Personal history of nicotine dependence; Z11.59 Encounter for screening for other viral diseases

== ENCOUNTER → 2023-03-22 | Outpatient (REF) | payer MEDICARE, MEDICAID ==
[~2023-03-22] MED LIST changes: +ACET32TAB PO; +AMOX500T2 PO; +CLOP75TA99 PO; -KLOR10TA76 PO; -KLOR20TA42 PO; -PLAV1TAB2 PO; +POTA-136 PO; +POTA-141 PO; +SIMV-254 PO; -ZOCO40TA PO
== END ==
LOC: M SFHCDERM 17:27
PROVIDERS: ATTEND Nurse Practitioner Family
DX: B35.1 Tinea unguium (principal)

== ENCOUNTER → 2023-10-04 | Outpatient (CLI) | payer MEDICAID, MEDICARE ==
[2023-10-04 19:09] LABS: ALBUMIN 3.8 G/DL (3.2-5.2); ALKALINE PHOSPHATASE 135 U/L (46-116); ALT/SGPT 20 U/L (7.0-40); AST/SGOT 14 U/L (<34); BILIRUBIN,TOTAL 0.2 MG/DL (0.3-1.2); BLOOD UREA NITROGEN 12 MG/DL (9-23); CALCIUM LEVEL 9.3 MG/DL (8.3-10.6); CARBON DIOXIDE LEVEL 19 MMOL/L (20-31); CHLORIDE LEVEL 112 MMOL/L (98-107); GLOMERULAR FILTRATION RATE > 60.0 (>45); GLUCOSE, FASTING 97 MG/DL (74-106); POTASSIUM SERUM 3.9 MMOL/L (3.5-5.1); SODIUM LEVEL 141 MMOL/L (136-145); TOTAL PROTEIN 7.1 G/DL (5.7-8.2)
== END ==
LOC: M LAB 16:23
PROVIDERS: ATTEND Nurse Practitioner Family
DX: B35.1 Tinea unguium (principal)

== ENCOUNTER → 2025-05-20 | Outpatient (CLI) | payer MEDICARE, MEDICAID ==
[~2025-05-20] MED LIST changes: +TOPI-14 PO; -TOPI200T7 PO
== END ==
LOC: M WHC 10:25
PROVIDERS: ATTEND Nurse Practitioner Women's Health
DX: Z12.31 Encounter for screening mammogram for malignant neoplasm of breast (principal); R92.333 Mammographic heterogeneous density, bilateral breasts